=== PATIENT | male | born 1940 | race Caucasian/White ===

== ENCOUNTER 2019-04-30 21:32 | Emergency (ER) | payer MEDICAID ==
[~2019-04-30] VITALS: Ht 170.2 cm; Wt 68.0 kg
[~2019-04-30 21:32] MED LIST: DIPH25CA83 PO
[2019-05-01 00:35] VITALS: BP 121/51
== END 2019-05-01 00:45 | disposition home or self-care (01) ==
LOC: ER 21:32
DX: R55 Syncope and collapse (principal); F43.20 Adjustment disorder, unspecified; F43.22 Adjustment disorder with anxiety; I11.0 Hypertensive heart disease with heart failure; E11.9 Type 2 diabetes mellitus without complications; I50.9 Heart failure, unspecified; Z95.1 Presence of aortocoronary bypass graft; Z98.890 Other specified postprocedural states
CPT/HCPCS: 82962; 93005; 99283

== ENCOUNTER 2019-12-20 21:25 | Emergency (ER) | payer MEDICAID ==
[~2019-12-20] VITALS: Ht 167.6 cm; Wt 70.0 kg
[2019-12-21 00:13] LABS: HEMATOCRIT. 42.8 % (42.0-52.0); HEMOGLOBIN. 14.6 g/dL (14.0-18.0); MEAN CORPUSCULAR HEMOGLOBIN 32.9 pg (28.0-32.0); MEAN CORPUSCULAR VOLUME 96.9 fL (80.0-94.0); MEAN PLATELET VOLUME 7.5 fl (7.4-10.4); PLATELET 299 x1000/uL (130-400); RED BLOOD CELL COUNT 4.42 mill/uL (4.7-6.1); RED CELL DISTRIBUTION WIDTH 14.3 % (11.6-14.6)
[2019-12-21 00:15] LABS: CHLORIDE 107 mEq/L (98-107)
[2019-12-21 00:56] LABS: PLATELET ESTIMATE NORMAL
[2019-12-21] MEDS ORDERED: SODIUM CHLORIDE 0.9% 1,000 ML IV ONE (01:08)
[2019-12-21] MEDS ORDERED: ASPIRIN 325MG EC TABLET PO SCH (01:15)
[2019-12-21 04:59] VITALS: BP 114/42
[2019-12-21] MEDS ORDERED: IOHEXOL-350 100 ML BOTTLE ONE (06:27)
== END 2019-12-21 05:40 | disposition left against medical advice (07) ==
LOC: ER 21:37 → CANBEDREQ 12-21 06:36
DX: R55 Syncope and collapse (principal); R53.1 Weakness; R41.82 Altered mental status, unspecified; R79.89 Other specified abnormal findings of blood chemistry; I11.0 Hypertensive heart disease with heart failure; I50.9 Heart failure, unspecified; E11.9 Type 2 diabetes mellitus without complications; Z95.1 Presence of aortocoronary bypass graft; Z98.62 Peripheral vascular angioplasty status; Z98.890 Other specified postprocedural states
CPT/HCPCS: 36415; 70450; 71045; 71275; 80053; 82962; 83880; 84484; 85025; 85379; 93005; 96360; 99285; Q9967

== ENCOUNTER 2020-05-29 02:25 | Inpatient (IN) | payer MEDICAID, OTHER ==
[~2020-05-29] VITALS: Ht 154.9 cm; Wt 84.4 kg
[2020-05-29] MEDS ORDERED: SODIUM CHLORIDE 0.9% 1,000 ML IV ONE (02:45)
[2020-05-29 02:55] LABS: HEMATOCRIT. 39.5 % (42.0-52.0); HEMOGLOBIN. 13.4 g/dL (14.0-18.0); MEAN CORPUSCULAR HEMOGLOBIN 32.1 pg (28.0-32.0); MEAN CORPUSCULAR VOLUME 94.8 fL (80.0-94.0); PLATELET 383 x1000/uL (130-400); RED BLOOD CELL COUNT 4.17 mill/uL (4.7-6.1); RED CELL DISTRIBUTION WIDTH 13.6 % (11.6-14.6)
[2020-05-29 02:59] LABS: CHLORIDE 87 mEq/L (98-107)
[2020-05-29 04:29] LABS: PLATELET ESTIMATE NORMAL
[2020-05-29] MEDS ORDERED: AZITHROMYCIN 500 MG in DEXT 5% WATER 250 ML IV ONE (04:45)
[2020-05-29] MEDS ORDERED: CEFTRIAXONE 1 G PREMIX 50 ML IV ONE (04:45)
[2020-05-29] MEDS ORDERED: TRAMADOL 50MG TABLET PO PRN (07:15)
[2020-05-29] MEDS ORDERED: ONDANSETRON HCL 4MG/2ML INJ IV PRN (07:15)
[2020-05-29] MEDS ORDERED: ALBUTEROL 6.7GM HFA INHALER ORI PRN (07:15)
[2020-05-29] MEDS: GUAIFENESIN/DM 600MG/30MG ER TAB 12HR PO SCH ×2 (07:15→18:47)
[2020-05-29] MEDS ORDERED: CLONIDINE 0.1MG TABLET PO PRN (07:15)
[2020-05-29] MEDS ORDERED: NA PHOS,M-B/NA PHOS,DI-BA ENEMA 118ML PR PRN (07:15)
[2020-05-29] MEDS ORDERED: NITROGLYCERIN 0.4MG TABLET SL SL PRN (07:15)
[2020-05-29] MEDS ORDERED: DEXTROSE 50% WATER 50ML SYRINGE IV PRN (07:15)
[2020-05-29] MEDS ORDERED: GUAIFENESIN 200MG/10ML SUGAR FREE UDC PO PRN (07:15)
[2020-05-29] MEDS ORDERED: DOCUSATE SODIUM 100MG CAPSULE PO PRN (07:15)
[2020-05-29] MEDS ORDERED: MAGNESIUM/ALUMINUM HYDROXIDE/SIMETHICONE 30ML UDC PO PRN (07:15)
[2020-05-29] MEDS: SODIUM CHLORIDE 0.9% 1,000 ML IV SCH ×2 (07:47→22:55)
[2020-05-29 08:12] LABS: BG BASE EXCESS -3.3 mmol/L (-2.0-2.0); BG CARBOXYHEMOGLOBIN 0.5 % (0.5-1.5); BG HCO3 ACT 18.7 mmol/L (22.0-26.0); BG METHEMOGLOBIN 0.3 % (0.0-1.5); BG OXYGEN SATURATION 90.9 % (92.0-98.5); BG OXYHEMOGLOBIN 90.2 % (94.0-97.0); BG PCO2 25.8 mmHg (35.0-45.0); BG PH 7.479 (7.350-7.450); BG PO2 57.5 mmHg (75.0-100.0); BG SAMPLE SITE RIGHT RADIAL; BG TOTAL HEMOGLOBIN 12.7 g/dL (12.0-18.0); BG VENT MODE NASAL CANNULA
[2020-05-29] MEDS: INSULIN LISPRO 100 UNITS/ML SUBCUT SCH ×4 (08:18→21:00)
[2020-05-29 08:44] LABS: INR 1.1; PROTHROMBIN TIME 11.9 sec (9.6-11.0)
[2020-05-29 08:50] LABS: VITAMIN B12 SERUM 1134 pg/mL (211-911)
[2020-05-29] MEDS ORDERED: METOPROLOL TARTRATE 25MG TABLET PO SCH (09:00)
[2020-05-29] MEDS ORDERED: ASPIRIN 325MG EC TABLET PO SCH (09:00)
[2020-05-29] MEDS: BLOOD SUGAR DIAGNOSTIC STRIP TEST SCH ×4 (09:02→21:00)
[2020-05-29] MEDS: DEXAMETHASONE 10 MG/ML VIAL IV SCH (09:10)
[2020-05-29] MEDS: FAMOTIDINE 20MG TABLET PO SCH ×2 (09:11→22:20)
[2020-05-29] MEDS: ZINC SULFATE 220 MG ( 50 ) CAPSULE PO SCH (09:11)
[2020-05-29] MEDS: ASCORBIC ACID 500 MG TABLET PO SCH ×2 (09:11→22:20)
[2020-05-29] MEDS: ENOXAPARIN 80MG/0.8ML SYR SUBCUT SCH ×2 (09:11→22:22)
[2020-05-29] MEDS: AMLODIPINE 5MG TABLET PO SCH (09:23)
[2020-05-29 12:00] VITALS: BP 135/60
[2020-05-29] MEDS: CHOLECALCIFEROL (D3) 1000 UNIT TABLET PO SCH (14:30)
[2020-05-29 16:00] VITALS: BP 145/80
[2020-05-29 16:26] LABS: T4 FREE 2.25 ng/dL (0.76-1.46)
[2020-05-29 16:29] LABS: CREATINE KINASE MB FRACTION 19.1 ng/mL (0.5-3.6)
[2020-05-29] MEDS ORDERED: AMLO10TA80 PO (19:40)
[2020-05-29] MEDS ORDERED: CLOP75TA33 PO (19:40)
[2020-05-29] MEDS ORDERED: BENA40TA9 PO (19:40)
[2020-05-29] MEDS ORDERED: OMEP20CA14 PO (19:40)
[2020-05-29] MEDS ORDERED: METO-539 PO (19:40)
[2020-05-29] MEDS ORDERED: ATOR40TA70 PO (19:40)
[2020-05-29] MEDS ORDERED: HYDR25TA PO (19:40)
[2020-05-29 20:40] VITALS: BP 155/79
[2020-05-29] MEDS: ZOLPIDEM TARTRATE 5MG TABLET PO PRN (22:53)
[2020-05-29 23:53] VITALS: BP 139/63
[2020-05-30 02:32] LABS: CREATINE KINASE MB FRACTION 43.7 ng/mL (0.5-3.6)
[2020-05-30 04:00] VITALS: BP 126/57
[2020-05-30] MEDS ORDERED: AZITHROMYCIN 500 MG in DEXT 5% WATER 250 ML IV SCH (06:00)
[2020-05-30] MEDS: BLOOD SUGAR DIAGNOSTIC STRIP TEST SCH ×4 (06:33→21:00)
[2020-05-30 08:00] VITALS: BP 124/57
[2020-05-30] MEDS: GUAIFENESIN/DM 600MG/30MG ER TAB 12HR PO SCH ×2 (08:09→22:34)
[2020-05-30] MEDS: AZITHROMYCIN 500 MG in DEXT 5% WATER 250 ML IV SCH (08:09)
[2020-05-30] MEDS: INSULIN LISPRO 100 UNITS/ML SUBCUT SCH ×4 (08:11→22:45)
[2020-05-30] MEDS ORDERED: CEFTRIAXONE 1 G PREMIX 50 ML IV SCH (08:30)
[2020-05-30 08:52] LABS: HEMATOCRIT. 36.3 % (42.0-52.0); HEMOGLOBIN. 12.4 g/dL (14.0-18.0); MEAN CORPUSCULAR HEMOGLOBIN 32.1 pg (28.0-32.0); MEAN PLATELET VOLUME 6.8 fl (7.4-10.4); PLATELET 427 x1000/uL (130-400); RED BLOOD CELL COUNT 3.86 mill/uL (4.7-6.1); RED CELL DISTRIBUTION WIDTH 13.5 % (11.6-14.6)
[2020-05-30] MEDS: ENOXAPARIN 80MG/0.8ML SYR SUBCUT SCH ×2 (09:00→22:34)
[2020-05-30 09:17] LABS: CHLORIDE 93 mEq/L (98-107)
[2020-05-30] MEDS: ASCORBIC ACID 500 MG TABLET PO SCH ×2 (11:16→22:35)
[2020-05-30] MEDS: DEXAMETHASONE 10 MG/ML VIAL IV SCH (11:16)
[2020-05-30] MEDS: AMLODIPINE 5MG TABLET PO SCH (11:17)
[2020-05-30] MEDS: ASPIRIN 81MG EC TABLET PO SCH (11:18)
[2020-05-30] MEDS: CHOLECALCIFEROL (D3) 1000 UNIT TABLET PO SCH (11:18)
[2020-05-30] MEDS: ZINC SULFATE 220 MG ( 50 ) CAPSULE PO SCH (11:18)
[2020-05-30] MEDS: FAMOTIDINE 20MG TABLET PO SCH ×2 (11:18→22:34)
[2020-05-30] MEDS: ALBUTEROL 6.7GM HFA INHALER ORI SCH ×4 (11:35→23:32)
[2020-05-30] MEDS: SODIUM CHLORIDE 0.9% 1,000 ML IV SCH ×2 (11:42→23:31)
[2020-05-30 12:00] VITALS: BP 138/67
[2020-05-30] MEDS: CEFTRIAXONE 1,000 MG in DEXTROSE 5% WATER 50 ML IV SCH (13:54)
[2020-05-30 14:16] LABS: PLATELET ESTIMATE INCREASED
[2020-05-30 16:00] VITALS: BP 128/67
[2020-05-30 20:00] VITALS: BP 98/68
[2020-05-31] VITALS: BP 112/62
[2020-05-31 04:00] VITALS: BP 92/65
[2020-05-31] MEDS: ALBUTEROL 6.7GM HFA INHALER ORI SCH ×4 (04:07→21:59)
[2020-05-31] MEDS: AZITHROMYCIN 500 MG in DEXT 5% WATER 250 ML IV SCH (06:02)
[2020-05-31] MEDS: GUAIFENESIN/DM 600MG/30MG ER TAB 12HR PO SCH ×2 (06:02→21:58)
[2020-05-31] MEDS: BLOOD SUGAR DIAGNOSTIC STRIP TEST SCH ×4 (06:58→21:59)
[2020-05-31] MEDS: INSULIN LISPRO 100 UNITS/ML SUBCUT SCH ×4 (06:59→23:08)
[2020-05-31 08:00] VITALS: BP 125/60
[2020-05-31] MEDS: ASCORBIC ACID 500 MG TABLET PO SCH ×2 (09:00→21:58)
[2020-05-31] MEDS: DEXAMETHASONE 10 MG/ML VIAL IV SCH (09:19)
[2020-05-31] MEDS: ENOXAPARIN 80MG/0.8ML SYR SUBCUT SCH ×2 (09:19→21:59)
[2020-05-31] MEDS: ZINC SULFATE 220 MG ( 50 ) CAPSULE PO SCH (09:19)
[2020-05-31] MEDS: CHOLECALCIFEROL (D3) 1000 UNIT TABLET PO SCH (09:20)
[2020-05-31] MEDS: ASPIRIN 81MG EC TABLET PO SCH (09:20)
[2020-05-31] MEDS: AMLODIPINE 5MG TABLET PO SCH (09:21)
[2020-05-31 12:00] VITALS: BP 124/57
[2020-05-31] MEDS: CEFTRIAXONE 1,000 MG in DEXTROSE 5% WATER 50 ML IV SCH (12:18)
[2020-05-31] MEDS: SODIUM CHLORIDE 0.9% 1,000 ML IV SCH ×2 (12:18→22:00)
[2020-05-31] MEDS: FAMOTIDINE 20MG TABLET PO SCH ×2 (12:18→23:07)
[2020-05-31 16:00] VITALS: BP 131/55
[2020-05-31 20:00] VITALS: BP 159/67
[2020-06-01] VITALS: BP 129/61
[2020-06-01] MEDS: ALBUTEROL 6.7GM HFA INHALER ORI SCH ×4 (03:04→20:51)
[2020-06-01 04:00] VITALS: BP 129/69
[2020-06-01] MEDS: GUAIFENESIN/DM 600MG/30MG ER TAB 12HR PO SCH ×2 (06:06→20:50)
[2020-06-01] MEDS: BLOOD SUGAR DIAGNOSTIC STRIP TEST SCH ×4 (06:06→21:47)
[2020-06-01] MEDS: AZITHROMYCIN 500 MG in DEXT 5% WATER 250 ML IV SCH (06:06)
[2020-06-01] MEDS: INSULIN LISPRO 100 UNITS/ML SUBCUT SCH ×4 (07:10→21:00)
[2020-06-01 08:00] VITALS: BP 127/65
[2020-06-01] MEDS: DEXAMETHASONE 10 MG/ML VIAL IV SCH (09:32)
[2020-06-01] MEDS: ENOXAPARIN 80MG/0.8ML SYR SUBCUT SCH ×2 (09:33→20:58)
[2020-06-01] MEDS: CHOLECALCIFEROL (D3) 1000 UNIT TABLET PO SCH (09:33)
[2020-06-01] MEDS: AMLODIPINE 5MG TABLET PO SCH (09:33)
[2020-06-01] MEDS: FAMOTIDINE 20MG TABLET PO SCH ×2 (09:33→20:51)
[2020-06-01] MEDS: ASCORBIC ACID 500 MG TABLET PO SCH ×2 (09:34→20:51)
[2020-06-01] MEDS: ZINC SULFATE 220 MG ( 50 ) CAPSULE PO SCH (09:34)
[2020-06-01] MEDS: ASPIRIN 81MG EC TABLET PO SCH (09:34)
[2020-06-01 12:00] VITALS: BP 160/77
[2020-06-01] MEDS: CEFTRIAXONE 1,000 MG in DEXTROSE 5% WATER 50 ML IV SCH (13:25)
[2020-06-01 16:00] VITALS: BP 144/87
[2020-06-01] MEDS: SODIUM CHLORIDE 0.9% 1,000 ML IV SCH ×2 (16:27→21:46)
[2020-06-01 20:00] VITALS: BP 132/60
[2020-06-01] MEDS: ZOLPIDEM TARTRATE 5MG TABLET PO PRN (20:51)
[2020-06-02] VITALS: BP 130/65
[2020-06-02] MEDS: ALBUTEROL 6.7GM HFA INHALER ORI SCH ×4 (03:08→23:52)
[2020-06-02 04:00] VITALS: BP 142/68
[2020-06-02] MEDS: BLOOD SUGAR DIAGNOSTIC STRIP TEST SCH ×4 (06:03→21:00)
[2020-06-02] MEDS: AZITHROMYCIN 500 MG in DEXT 5% WATER 250 ML IV SCH (06:03)
[2020-06-02] MEDS: INSULIN LISPRO 100 UNITS/ML SUBCUT SCH ×4 (06:03→21:00)
[2020-06-02] MEDS: GUAIFENESIN/DM 600MG/30MG ER TAB 12HR PO SCH ×2 (06:04→18:15)
[2020-06-02 08:00] VITALS: BP 148/66
[2020-06-02] MEDS: ASCORBIC ACID 500 MG TABLET PO SCH ×2 (08:24→23:50)
[2020-06-02] MEDS: DEXAMETHASONE 10 MG/ML VIAL IV SCH (08:24)
[2020-06-02] MEDS: ZINC SULFATE 220 MG ( 50 ) CAPSULE PO SCH (08:24)
[2020-06-02] MEDS: ASPIRIN 81MG EC TABLET PO SCH (08:24)
[2020-06-02] MEDS: CHOLECALCIFEROL (D3) 1000 UNIT TABLET PO SCH (08:24)
[2020-06-02] MEDS: FAMOTIDINE 20MG TABLET PO SCH ×2 (08:24→23:50)
[2020-06-02] MEDS: AMLODIPINE 5MG TABLET PO SCH (08:26)
[2020-06-02] MEDS: ENOXAPARIN 80MG/0.8ML SYR SUBCUT SCH ×2 (08:26→23:51)
[2020-06-02] MEDS: CEFTRIAXONE 1,000 MG in DEXTROSE 5% WATER 50 ML IV SCH (13:49)
[2020-06-02 16:00] VITALS: BP 158/77
[2020-06-02] MEDS: SODIUM CHLORIDE 0.9% 1,000 ML IV SCH (18:12)
[2020-06-02 20:00] VITALS: BP 147/75
[2020-06-03] VITALS: BP 143/72
[2020-06-03] MEDS: ALBUTEROL 6.7GM HFA INHALER ORI SCH ×4 (03:00→21:37)
[2020-06-03 04:00] VITALS: BP 140/71
[2020-06-03] MEDS: BLOOD SUGAR DIAGNOSTIC STRIP TEST SCH ×4 (06:40→21:00)
[2020-06-03] MEDS: INSULIN LISPRO 100 UNITS/ML SUBCUT SCH ×4 (07:10→21:00)
[2020-06-03] MEDS: SODIUM CHLORIDE 0.9% 1,000 ML IV SCH ×2 (08:08→23:38)
[2020-06-03] MEDS: GUAIFENESIN/DM 600MG/30MG ER TAB 12HR PO SCH ×2 (08:08→21:32)
[2020-06-03] MEDS: DEXAMETHASONE 10 MG/ML VIAL IV SCH (08:30)
[2020-06-03] MEDS: ASCORBIC ACID 500 MG TABLET PO SCH ×2 (08:30→21:32)
[2020-06-03] MEDS: CHOLECALCIFEROL (D3) 1000 UNIT TABLET PO SCH (08:30)
[2020-06-03] MEDS: ENOXAPARIN 80MG/0.8ML SYR SUBCUT SCH ×2 (08:30→21:36)
[2020-06-03] MEDS: ASPIRIN 81MG EC TABLET PO SCH (08:30)
[2020-06-03] MEDS: AMLODIPINE 5MG TABLET PO SCH (08:30)
[2020-06-03] MEDS: FAMOTIDINE 20MG TABLET PO SCH ×2 (08:30→21:32)
[2020-06-03] MEDS: ZINC SULFATE 220 MG ( 50 ) CAPSULE PO SCH (08:30)
[2020-06-03 12:00] VITALS: BP 126/80
[2020-06-03] MEDS: CEFTRIAXONE 1,000 MG in DEXTROSE 5% WATER 50 ML IV SCH (12:14)
[2020-06-03 16:00] VITALS: BP 152/92
[2020-06-03 20:00] VITALS: BP 139/78
[2020-06-03] MEDS: ACETAMINOPHEN 325MG TABLET PO PRN (21:47)
[2020-06-04] VITALS: BP 138/70
[2020-06-04] MEDS: ALBUTEROL 6.7GM HFA INHALER ORI SCH ×3 (03:00→17:19)
[2020-06-04 04:00] VITALS: BP 142/85
[2020-06-04] MEDS: BLOOD SUGAR DIAGNOSTIC STRIP TEST SCH ×3 (06:40→16:40)
[2020-06-04] MEDS: INSULIN LISPRO 100 UNITS/ML SUBCUT SCH ×4 (07:10→21:00)
[2020-06-04 08:00] VITALS: BP 136/74
[2020-06-04] MEDS: DEXAMETHASONE 10 MG/ML VIAL IV SCH (09:00)
[2020-06-04] MEDS: FAMOTIDINE 20MG TABLET PO SCH (10:15)
[2020-06-04] MEDS: ENOXAPARIN 80MG/0.8ML SYR SUBCUT SCH ×2 (10:15→21:00)
[2020-06-04] MEDS: ASCORBIC ACID 500 MG TABLET PO SCH (10:15)
[2020-06-04] MEDS: GUAIFENESIN/DM 600MG/30MG ER TAB 12HR PO SCH (10:15)
[2020-06-04] MEDS: AMLODIPINE 5MG TABLET PO SCH (10:16)
[2020-06-04] MEDS: CHOLECALCIFEROL (D3) 1000 UNIT TABLET PO SCH (10:18)
[2020-06-04] MEDS: ZINC SULFATE 220 MG ( 50 ) CAPSULE PO SCH (10:18)
[2020-06-04] MEDS: ASPIRIN 81MG EC TABLET PO SCH (10:18)
[2020-06-04] MEDS: SODIUM CHLORIDE 0.9% 1,000 ML IV SCH ×2 (11:10→23:47)
[2020-06-04 12:00] VITALS: BP 141/88
[2020-06-04] MEDS: CEFTRIAXONE 1,000 MG in DEXTROSE 5% WATER 50 ML IV SCH (13:15)
[2020-06-04 16:00] VITALS: BP 153/86
[2020-06-04 20:00] VITALS: BP 152/82
[2020-06-05] MEDS: ASCORBIC ACID 500 MG TABLET PO SCH ×3 (01:31→21:06)
[2020-06-05] MEDS: FAMOTIDINE 20MG TABLET PO SCH ×3 (01:32→21:06)
[2020-06-05] MEDS: CHOLECALCIFEROL (D3) 1000 UNIT TABLET PO SCH (01:32)
[2020-06-05] MEDS: GUAIFENESIN/DM 600MG/30MG ER TAB 12HR PO SCH ×3 (01:36→19:15)
[2020-06-05] MEDS: ALBUTEROL 6.7GM HFA INHALER ORI SCH ×5 (01:37→21:07)
[2020-06-05 04:00] VITALS: BP 162/78
[2020-06-05] MEDS: BLOOD SUGAR DIAGNOSTIC STRIP TEST SCH ×4 (06:40→21:07)
[2020-06-05] MEDS: INSULIN LISPRO 100 UNITS/ML SUBCUT SCH ×4 (07:10→21:00)
[2020-06-05 08:00] VITALS: BP 144/75
[2020-06-05] MEDS: ASPIRIN 81MG EC TABLET PO SCH (08:59)
[2020-06-05] MEDS: ZINC SULFATE 220 MG ( 50 ) CAPSULE PO SCH (08:59)
[2020-06-05] MEDS: AMLODIPINE 5MG TABLET PO SCH (09:00)
[2020-06-05] MEDS: ENOXAPARIN 80MG/0.8ML SYR SUBCUT SCH ×2 (09:01→21:05)
[2020-06-05] MEDS: DEXAMETHASONE 10 MG/ML VIAL IV SCH (09:29)
[2020-06-05 11:35] LABS: HEMATOCRIT. 37.8 % (42.0-52.0); HEMOGLOBIN. 12.5 g/dL (14.0-18.0); MEAN CORPUSCULAR HEMOGLOBIN 31.4 pg (28.0-32.0); MEAN PLATELET VOLUME 6.5 fl (7.4-10.4); PLATELET 538 x1000/uL (130-400); RED BLOOD CELL COUNT 3.98 mill/uL (4.7-6.1)
[2020-06-05 11:41] LABS: CHLORIDE 110 mEq/L (98-107)
[2020-06-05 12:00] VITALS: BP 147/95
[2020-06-05] MEDS: SODIUM CHLORIDE 0.9% 1,000 ML IV SCH (13:21)
[2020-06-05 14:16] LABS: PLATELET ESTIMATE INCREASED
[2020-06-05 16:00] VITALS: BP 149/84
[2020-06-05 20:00] VITALS: BP 141/88
[2020-06-06] VITALS (47 sets, daily range): BP systolic 59–169; BP diastolic 39–87
[2020-06-06] MEDS: SODIUM CHLORIDE 0.9% 1,000 ML IV SCH ×2 (02:42→16:23)
[2020-06-06] MEDS: ALBUTEROL 6.7GM HFA INHALER ORI SCH ×4 (02:42→22:24)
[2020-06-06] MEDS: BLOOD SUGAR DIAGNOSTIC STRIP TEST SCH ×4 (05:24→20:13)
[2020-06-06] MEDS: INSULIN LISPRO 100 UNITS/ML SUBCUT SCH ×4 (05:32→20:16)
[2020-06-06] MEDS: GUAIFENESIN/DM 600MG/30MG ER TAB 12HR PO SCH ×2 (06:20→19:15)
[2020-06-06] MEDS: AMLODIPINE 5MG TABLET PO SCH (08:50)
[2020-06-06] MEDS: ASCORBIC ACID 500 MG TABLET PO SCH ×2 (08:51→20:14)
[2020-06-06] MEDS: ZINC SULFATE 220 MG ( 50 ) CAPSULE PO SCH (08:51)
[2020-06-06] MEDS: FAMOTIDINE 20MG TABLET PO SCH ×2 (08:51→20:14)
[2020-06-06] MEDS: CHOLECALCIFEROL (D3) 1000 UNIT TABLET PO SCH (08:51)
[2020-06-06] MEDS: ASPIRIN 81MG EC TABLET PO SCH (08:51)
[2020-06-06] MEDS: DEXAMETHASONE 10 MG/ML VIAL IV SCH (08:51)
[2020-06-06] MEDS: ENOXAPARIN 80MG/0.8ML SYR SUBCUT SCH (08:52)
[2020-06-06] MEDS ORDERED: NOREPINEPHRINE 8 MG in DEXT 5% WATER 242 ML IV STA (17:40)
[2020-06-06] MEDS ORDERED: PHENYLEPHRINE 50 MG in DEXT 5% WATER 245 ML IV STA (17:44)
[2020-06-06] MEDS: MIDAZOLAM 100MG/100ML PMX 100 ML IV PRN ×2 (18:27→23:52)
[2020-06-06 18:34] LABS: BG BASE EXCESS -10.3 mmol/L (-2.0-2.0); BG CARBOXYHEMOGLOBIN 1.3 % (0.5-1.5); BG DEOXYHEMOGLOBIN 18.3 % (0.0-5.0); BG HCO3 ACT 19.6 mmol/L (22.0-26.0); BG METHEMOGLOBIN 0.3 % (0.0-1.5); BG OXYGEN SATURATION 81.4 % (92.0-98.5); BG OXYHEMOGLOBIN 80.1 % (94.0-97.0); BG PH 7.111 (7.350-7.450); BG PO2 62.8 mmHg (75.0-100.0); BG SAMPLE SITE LEFT FEMORAL; BG TOTAL HEMOGLOBIN 12.1 g/dL (12.0-18.0); BG VENT MODE VENT - AC
[2020-06-06] MEDS ORDERED: SODIUM BICARBONATE 8.4% 1 MEQ/ML 50ML SYR IV NR (18:45)
[2020-06-06] MEDS ORDERED: NOREPINEPHRINE 8MG/250ML PMX 250 ML IV PRN (21:45)
[2020-06-06] MEDS: PHENYLEPHRINE 50 MG in DEXT 5% WATER 245 ML IV PRN (22:20)
[2020-06-06] MEDS: FENTANYL CITRATE/PF 2,500 MCG in SODIUM CHLORIDE 0.9% 200 ML IV PRN (23:32)
[2020-06-07] VITALS (83 sets, daily range): BP systolic 76–167; BP diastolic 48–88
[2020-06-07] MEDS: PHENYLEPHRINE 50 MG in DEXT 5% WATER 245 ML IV PRN ×3 (02:48→19:12)
[2020-06-07] MEDS: INSULIN LISPRO 100 UNITS/ML SUBCUT SCH ×4 (07:00→21:00)
[2020-06-07] MEDS: BLOOD SUGAR DIAGNOSTIC STRIP TEST SCH ×4 (07:21→21:19)
[2020-06-07] MEDS: AMLODIPINE 5MG TABLET PO SCH (07:34)
[2020-06-07] MEDS: FAMOTIDINE 20MG TABLET PO SCH ×2 (08:04→21:19)
[2020-06-07] MEDS: ALBUTEROL 6.7GM HFA INHALER ORI SCH (08:04)
[2020-06-07] MEDS: CHOLECALCIFEROL (D3) 1000 UNIT TABLET PO SCH (08:04)
[2020-06-07] MEDS: ASCORBIC ACID 500 MG TABLET PO SCH ×2 (08:04→21:19)
[2020-06-07] MEDS: ASPIRIN 81MG EC TABLET PO SCH (08:04)
[2020-06-07] MEDS: DEXAMETHASONE 10 MG/ML VIAL IV SCH (08:04)
[2020-06-07] MEDS: ZINC SULFATE 220 MG ( 50 ) CAPSULE PO SCH (08:06)
[2020-06-07] MEDS: SODIUM CHLORIDE 0.9% 1,000 ML IV SCH ×2 (08:54→23:23)
[2020-06-07] MEDS: MIDAZOLAM 100MG/100ML PMX 100 ML IV PRN ×2 (10:17→21:25)
[2020-06-07] MEDS: ENOXAPARIN 40MG/0.4ML SYR SUBCUT SCH (13:29)
[2020-06-07] MEDS ORDERED: IPRATROPIUM/ALBUTEROL 0.5-3(2.5)MG/3ML NEB HHN PRN (15:00)
[2020-06-07 15:34] LABS: BG BASE EXCESS 4.6 mmol/L (-2.0-2.0); BG CARBOXYHEMOGLOBIN 0.9 % (0.5-1.5); BG DEOXYHEMOGLOBIN 2.4 % (0.0-5.0); BG FRACTION INSPIRED OXYGEN 95; BG HCO3 ACT 28.7 mmol/L (22.0-26.0); BG METHEMOGLOBIN 0.3 % (0.0-1.5); BG OXYGEN SATURATION 97.6 % (92.0-98.5); BG OXYHEMOGLOBIN 96.4 % (94.0-97.0); BG PCO2 40.9 mmHg (35.0-45.0); BG PH 7.464 (7.350-7.450); BG PO2 116.2 mmHg (75.0-100.0); BG SAMPLE SITE RIGHT RADIAL; BG TOTAL HEMOGLOBIN 12.2 g/dL (12.0-18.0); BG VENT MODE VENT - AC
[2020-06-07 16:58] LABS: HEMOGLOBIN. 11.8 g/dL (14.0-18.0); MEAN CORPUSCULAR HEMOGLOBIN 31.1 pg (28.0-32.0); MEAN CORPUSCULAR VOLUME 97.4 fL (80.0-94.0); MEAN PLATELET VOLUME 7.5 fl (7.4-10.4); PLATELET 401 x1000/uL (130-400); RED CELL DISTRIBUTION WIDTH 15.2 % (11.6-14.6)
[2020-06-07 17:06] LABS: CHLORIDE 113 mEq/L (98-107)
[2020-06-07 17:11] LABS: PHOSPHORUS 3.5 mg/dL (2.5-4.9)
[2020-06-07] MEDS: CEFEPIME 2,000 MG in DEXT 5% WATER 100 ML IV SCH (18:13)
[2020-06-07] MEDS: IPRATROPIUM/ALBUTEROL 0.5-3(2.5)MG/3ML NEB HHN SCH (20:18)
[2020-06-07] MEDS: METRONIDAZOLE 500MG TABLET PO SCH (21:19)
[2020-06-07 22:49] LABS: PLATELET ESTIMATE SLIGHTLY INCREASED
[2020-06-08] VITALS (95 sets, daily range): BP systolic 86–146; BP diastolic 49–70
[2020-06-08] MEDS: IPRATROPIUM/ALBUTEROL 0.5-3(2.5)MG/3ML NEB HHN SCH ×5 (03:12→21:30)
[2020-06-08] MEDS: CEFEPIME 2,000 MG in DEXT 5% WATER 100 ML IV SCH ×2 (05:00→15:53)
[2020-06-08] MEDS: METRONIDAZOLE 500MG TABLET PO SCH ×3 (05:01→21:11)
[2020-06-08] MEDS: BLOOD SUGAR DIAGNOSTIC STRIP TEST SCH ×4 (05:01→21:00)
[2020-06-08] MEDS: INSULIN LISPRO 100 UNITS/ML SUBCUT SCH ×4 (05:05→21:00)
[2020-06-08 05:13] LABS: HEMATOCRIT. 33.3 % (42.0-52.0); MEAN CORPUSCULAR HEMOGLOBIN 31.5 pg (28.0-32.0); MEAN CORPUSCULAR VOLUME 95.5 fL (80.0-94.0); MEAN PLATELET VOLUME 7.3 fl (7.4-10.4); PLATELET 378 x1000/uL (130-400); RED BLOOD CELL COUNT 3.49 mill/uL (4.7-6.1)
[2020-06-08 05:27] LABS: CHLORIDE 114 mEq/L (98-107)
[2020-06-08] MEDS: FENTANYL CITRATE/PF 2,500 MCG in SODIUM CHLORIDE 0.9% 200 ML IV PRN (05:40)
[2020-06-08] MEDS: MIDAZOLAM 100MG/100ML PMX 100 ML IV PRN ×2 (06:47→18:04)
[2020-06-08] MEDS: AMLODIPINE 5MG TABLET PO SCH (09:00)
[2020-06-08] MEDS: ENOXAPARIN 40MG/0.4ML SYR SUBCUT SCH (09:00)
[2020-06-08] MEDS: ZINC SULFATE 220 MG ( 50 ) CAPSULE PO SCH (09:04)
[2020-06-08] MEDS: DOCUSATE SODIUM SUGAR FREE 100MG/10ML UDC NG SCH ×2 (09:04→17:46)
[2020-06-08] MEDS: CHOLECALCIFEROL (D3) 1000 UNIT TABLET PO SCH (09:04)
[2020-06-08] MEDS: ASPIRIN 81MG EC TABLET PO SCH (09:04)
[2020-06-08] MEDS: ASCORBIC ACID 500 MG TABLET PO SCH ×2 (09:04→21:11)
[2020-06-08] MEDS: FAMOTIDINE 20MG TABLET PO SCH ×2 (09:04→21:11)
[2020-06-08] MEDS: DEXAMETHASONE 10 MG/ML VIAL IV SCH (09:04)
[2020-06-08] MEDS: ACETAMINOPHEN 325MG TABLET PO PRN (09:16)
[2020-06-08] MEDS: PHENYLEPHRINE 50 MG in DEXT 5% WATER 245 ML IV PRN (10:55)
[2020-06-08 11:13] LABS: BG BASE EXCESS 0.6 mmol/L (-2.0-2.0); BG CARBOXYHEMOGLOBIN 1.1 % (0.5-1.5); BG DEOXYHEMOGLOBIN 3.8 % (0.0-5.0); BG FRACTION INSPIRED OXYGEN 100; BG METHEMOGLOBIN 0.3 % (0.0-1.5); BG OXYGEN SATURATION 96.1 % (92.0-98.5); BG OXYHEMOGLOBIN 94.8 % (94.0-97.0); BG PCO2 51.1 mmHg (35.0-45.0); BG PO2 92.2 mmHg (75.0-100.0); BG SAMPLE SITE LEFT RADIAL; BG TOTAL HEMOGLOBIN 11.3 g/dL (12.0-18.0); BG VENT MODE VENT - AC
[2020-06-08] MEDS ORDERED: IOHEXOL-350 100 ML BOTTLE ONE (12:37)
[2020-06-08 13:53] LABS: PLATELET ESTIMATE NORMAL
[2020-06-08] MEDS: SODIUM CHLORIDE 0.9% 1,000 ML IV SCH (14:03)
[2020-06-09] VITALS (69 sets, daily range): BP systolic 82–129; BP diastolic 44–82
[2020-06-09] MEDS: PHENYLEPHRINE 50 MG in DEXT 5% WATER 245 ML IV PRN (02:10)
[2020-06-09] MEDS: IPRATROPIUM/ALBUTEROL 0.5-3(2.5)MG/3ML NEB HHN SCH ×5 (03:10→20:56)
[2020-06-09] MEDS: CEFEPIME 2,000 MG in DEXT 5% WATER 100 ML IV SCH ×2 (04:38→15:56)
[2020-06-09] MEDS: SODIUM CHLORIDE 0.9% 1,000 ML IV SCH ×2 (04:38→20:48)
[2020-06-09 05:59] LABS: HEMATOCRIT. 33.3 % (42.0-52.0); HEMOGLOBIN. 10.6 g/dL (14.0-18.0); MEAN CORPUSCULAR VOLUME 97.2 fL (80.0-94.0); PLATELET 339 x1000/uL (130-400); RED BLOOD CELL COUNT 3.43 mill/uL (4.7-6.1); RED CELL DISTRIBUTION WIDTH 15.2 % (11.6-14.6)
[2020-06-09 06:03] LABS: CHLORIDE 113 mEq/L (98-107)
[2020-06-09] MEDS: BLOOD SUGAR DIAGNOSTIC STRIP TEST SCH ×4 (06:16→21:00)
[2020-06-09] MEDS: INSULIN LISPRO 100 UNITS/ML SUBCUT SCH ×4 (06:16→21:00)
[2020-06-09] MEDS: METRONIDAZOLE 500MG TABLET PO SCH ×3 (06:26→21:55)
[2020-06-09] MEDS: FAMOTIDINE 20MG TABLET PO SCH ×2 (09:00→21:55)
[2020-06-09] MEDS: DOCUSATE SODIUM SUGAR FREE 100MG/10ML UDC NG SCH ×2 (09:00→15:54)
[2020-06-09] MEDS: AMLODIPINE 5MG TABLET PO SCH (09:00)
[2020-06-09] MEDS: CHOLECALCIFEROL (D3) 1000 UNIT TABLET PO SCH (09:00)
[2020-06-09] MEDS: ENOXAPARIN 40MG/0.4ML SYR SUBCUT SCH (09:00)
[2020-06-09] MEDS: ZINC SULFATE 220 MG ( 50 ) CAPSULE PO SCH (09:00)
[2020-06-09] MEDS: ASCORBIC ACID 500 MG TABLET PO SCH ×2 (09:00→21:55)
[2020-06-09] MEDS: ASPIRIN 81MG EC TABLET PO SCH (09:00)
[2020-06-09 09:36] LABS: BG BASE EXCESS 0.2 mmol/L (-2.0-2.0); BG CARBOXYHEMOGLOBIN 0.4 % (0.5-1.5); BG DEOXYHEMOGLOBIN 2.5 % (0.0-5.0); BG FRACTION INSPIRED OXYGEN 90; BG HCO3 ACT 26.9 mmol/L (22.0-26.0); BG METHEMOGLOBIN 0.3 % (0.0-1.5); BG OXYGEN SATURATION 97.5 % (92.0-98.5); BG OXYHEMOGLOBIN 96.8 % (94.0-97.0); BG PCO2 53.1 mmHg (35.0-45.0); BG PH 7.322 (7.350-7.450); BG PO2 117.5 mmHg (75.0-100.0); BG SAMPLE SITE LEFT RADIAL; BG TOTAL HEMOGLOBIN 10.9 g/dL (12.0-18.0); BG TOTAL RESPIRATORY RATE 19 b/min; BG VENT MODE VENT - AC
[2020-06-09 11:14] LABS: PLATELET ESTIMATE NORMAL
[2020-06-09] MEDS: FENTANYL CITRATE/PF 2,500 MCG in SODIUM CHLORIDE 0.9% 200 ML IV PRN (11:39)
[2020-06-09] MEDS ORDERED: ACETAMINOPHEN 650MG SUPP PR PRN (21:52)
[2020-06-10] VITALS (69 sets, daily range): BP systolic 91–134; BP diastolic 44–71
[2020-06-10] MEDS: PHENYLEPHRINE 50 MG in DEXT 5% WATER 245 ML IV PRN (02:49)
[2020-06-10] MEDS: IPRATROPIUM/ALBUTEROL 0.5-3(2.5)MG/3ML NEB HHN SCH ×5 (03:01→20:34)
[2020-06-10] MEDS: CEFEPIME 2,000 MG in DEXT 5% WATER 100 ML IV SCH ×2 (04:16→16:54)
[2020-06-10] MEDS: FENTANYL CITRATE/PF 2,500 MCG in SODIUM CHLORIDE 0.9% 200 ML IV PRN ×2 (04:41→21:09)
[2020-06-10 05:55] LABS: HEMATOCRIT. 30.9 % (42.0-52.0); HEMOGLOBIN. 9.9 g/dL (14.0-18.0); MEAN CORPUSCULAR HEMOGLOBIN 31.2 pg (28.0-32.0); MEAN CORPUSCULAR VOLUME 97.6 fL (80.0-94.0); MEAN PLATELET VOLUME 8.6 fl (7.4-10.4); PLATELET 240 x1000/uL (130-400); RED BLOOD CELL COUNT 3.16 mill/uL (4.7-6.1); RED CELL DISTRIBUTION WIDTH 15.5 % (11.6-14.6)
[2020-06-10 06:12] LABS: CHLORIDE 115 mEq/L (98-107)
[2020-06-10] MEDS: BLOOD SUGAR DIAGNOSTIC STRIP TEST SCH ×4 (06:30→20:52)
[2020-06-10] MEDS: METRONIDAZOLE 500MG TABLET PO SCH ×3 (06:39→21:07)
[2020-06-10] MEDS: INSULIN LISPRO 100 UNITS/ML SUBCUT SCH ×4 (06:40→20:52)
[2020-06-10 08:48] LABS: BG BASE EXCESS 2.1 mmol/L (-2.0-2.0); BG CARBOXYHEMOGLOBIN 0.6 % (0.5-1.5); BG DEOXYHEMOGLOBIN 2.5 % (0.0-5.0); BG HCO3 ACT 29.2 mmol/L (22.0-26.0); BG METHEMOGLOBIN 0.3 % (0.0-1.5); BG OXYGEN SATURATION 97.5 % (92.0-98.5); BG OXYHEMOGLOBIN 96.6 % (94.0-97.0); BG PCO2 58.6 mmHg (35.0-45.0); BG PH 7.316 (7.350-7.450); BG SAMPLE SITE LEFT RADIAL; BG TOTAL HEMOGLOBIN 11.3 g/dL (12.0-18.0); BG VENT MODE VENT - AC
[2020-06-10] MEDS: AMLODIPINE 5MG TABLET PO SCH (09:00)
[2020-06-10] MEDS: ZINC SULFATE 220 MG ( 50 ) CAPSULE PO SCH (09:18)
[2020-06-10] MEDS: FAMOTIDINE 20MG TABLET PO SCH ×2 (09:18→21:07)
[2020-06-10] MEDS: ENOXAPARIN 40MG/0.4ML SYR SUBCUT SCH (09:18)
[2020-06-10] MEDS: ASPIRIN 81MG EC TABLET PO SCH (09:18)
[2020-06-10] MEDS: CHOLECALCIFEROL (D3) 1000 UNIT TABLET PO SCH (09:18)
[2020-06-10] MEDS: ASCORBIC ACID 500 MG TABLET PO SCH ×2 (09:18→21:07)
[2020-06-10] MEDS: DOCUSATE SODIUM SUGAR FREE 100MG/10ML UDC NG SCH ×2 (09:18→17:00)
[2020-06-10 11:33] LABS: PLATELET ESTIMATE NORMAL
[2020-06-10] MEDS: SODIUM CHLORIDE 0.45% 1,000 ML IV SCH (14:00)
[2020-06-10] MEDS: ACETAMINOPHEN 325MG TABLET PO PRN (21:08)
[2020-06-11] VITALS (60 sets, daily range): BP systolic 87–156; BP diastolic 45–94
[2020-06-11] MEDS: IPRATROPIUM/ALBUTEROL 0.5-3(2.5)MG/3ML NEB HHN SCH ×6 (00:13→20:38)
[2020-06-11] MEDS: ACETAMINOPHEN 325MG TABLET PO PRN (01:58)
[2020-06-11] MEDS: CEFEPIME 2,000 MG in DEXT 5% WATER 100 ML IV SCH ×2 (04:19→17:06)
[2020-06-11 05:35] LABS: CHLORIDE 114 mEq/L (98-107)
[2020-06-11 05:42] LABS: HEMATOCRIT. 31.2 % (42.0-52.0); MEAN CORPUSCULAR HEMOGLOBIN 31.4 pg (28.0-32.0); MEAN CORPUSCULAR VOLUME 97.6 fL (80.0-94.0); MEAN PLATELET VOLUME 8.4 fl (7.4-10.4); PLATELET 205 x1000/uL (130-400); RED BLOOD CELL COUNT 3.19 mill/uL (4.7-6.1); RED CELL DISTRIBUTION WIDTH 15.3 % (11.6-14.6)
[2020-06-11] MEDS: BLOOD SUGAR DIAGNOSTIC STRIP TEST SCH ×4 (05:59→21:00)
[2020-06-11] MEDS: INSULIN LISPRO 100 UNITS/ML SUBCUT SCH ×4 (05:59→21:00)
[2020-06-11] MEDS: METRONIDAZOLE 500MG TABLET PO SCH ×3 (06:06→21:54)
[2020-06-11] MEDS: AMLODIPINE 5MG TABLET PO SCH (09:00)
[2020-06-11 09:30] LABS: BG BASE EXCESS 0.8 mmol/L (-2.0-2.0); BG CARBOXYHEMOGLOBIN 1.3 % (0.5-1.5); BG DEOXYHEMOGLOBIN 11.4 % (0.0-5.0); BG FRACTION INSPIRED OXYGEN 90; BG HCO3 ACT 27.2 mmol/L (22.0-26.0); BG METHEMOGLOBIN 0.3 % (0.0-1.5); BG OXYGEN SATURATION 88.4 % (92.0-98.5); BG PCO2 52.1 mmHg (35.0-45.0); BG PH 7.336 (7.350-7.450); BG PO2 56.9 mmHg (75.0-100.0); BG SAMPLE SITE RIGHT RADIAL; BG TOTAL HEMOGLOBIN 10.3 g/dL (12.0-18.0); BG VENT MODE VENT - AC
[2020-06-11] MEDS: ENOXAPARIN 40MG/0.4ML SYR SUBCUT SCH (09:42)
[2020-06-11] MEDS: ASCORBIC ACID 500 MG TABLET PO SCH ×2 (09:43→21:53)
[2020-06-11] MEDS: FAMOTIDINE 20MG TABLET PO SCH ×2 (09:43→21:53)
[2020-06-11] MEDS: ZINC SULFATE 220 MG ( 50 ) CAPSULE PO SCH (09:43)
[2020-06-11] MEDS: DOCUSATE SODIUM SUGAR FREE 100MG/10ML UDC NG SCH ×2 (09:43→17:07)
[2020-06-11] MEDS: ASPIRIN 81MG EC TABLET PO SCH (09:43)
[2020-06-11] MEDS: CHOLECALCIFEROL (D3) 1000 UNIT TABLET PO SCH (09:43)
[2020-06-11] MEDS: LORAZEPAM 2MG/ML CPJ IV PRN ×2 (11:15→17:08)
[2020-06-11] MEDS: SODIUM CHLORIDE 0.45% 1,000 ML IV SCH ×2 (12:49→21:31)
[2020-06-11 17:06] LABS: PLATELET ESTIMATE NORMAL
[2020-06-12] VITALS (44 sets, daily range): BP systolic 88–163; BP diastolic 47–79
[2020-06-12] MEDS ORDERED: ACETAMINOPHEN 650MG/20.3ML UDC PO PRN ×2 (00:30→00:45)
[2020-06-12] MEDS ORDERED: ACETAMINOPHEN 325MG TABLET NG PRN (01:00)
[2020-06-12] MEDS: IPRATROPIUM/ALBUTEROL 0.5-3(2.5)MG/3ML NEB HHN SCH ×5 (02:13→21:00)
[2020-06-12] MEDS: CEFEPIME 2,000 MG in DEXT 5% WATER 100 ML IV SCH ×2 (04:00→16:29)
[2020-06-12] MEDS: METRONIDAZOLE 500MG TABLET PO SCH ×3 (05:40→22:14)
[2020-06-12 05:45] LABS: HEMATOCRIT. 27.4 % (42.0-52.0); HEMOGLOBIN. 8.9 g/dL (14.0-18.0); MEAN CORPUSCULAR HEMOGLOBIN 31.6 pg (28.0-32.0); MEAN CORPUSCULAR VOLUME 97.4 fL (80.0-94.0); MEAN PLATELET VOLUME 8.8 fl (7.4-10.4); PLATELET 191 x1000/uL (130-400); RED BLOOD CELL COUNT 2.82 mill/uL (4.7-6.1); RED CELL DISTRIBUTION WIDTH 15.1 % (11.6-14.6)
[2020-06-12 05:53] LABS: CHLORIDE 112 mEq/L (98-107)
[2020-06-12] MEDS: BLOOD SUGAR DIAGNOSTIC STRIP TEST SCH ×4 (06:55→21:00)
[2020-06-12] MEDS: INSULIN LISPRO 100 UNITS/ML SUBCUT SCH ×4 (06:56→21:00)
[2020-06-12 08:14] LABS: BG BASE EXCESS 4.2 mmol/L (-2.0-2.0); BG CARBOXYHEMOGLOBIN 0.7 % (0.5-1.5); BG HCO3 ACT 29.9 mmol/L (22.0-26.0); BG METHEMOGLOBIN 0.3 % (0.0-1.5); BG PCO2 51.3 mmHg (35.0-45.0); BG PH 7.384 (7.350-7.450); BG PO2 129.9 mmHg (75.0-100.0); BG SAMPLE SITE RIGHT RADIAL; BG TOTAL HEMOGLOBIN 9.5 g/dL (12.0-18.0); BG VENT MODE VENT - AC
[2020-06-12] MEDS: AMLODIPINE 5MG TABLET PO SCH (09:00)
[2020-06-12] MEDS: DOCUSATE SODIUM SUGAR FREE 100MG/10ML UDC NG SCH ×2 (09:02→16:31)
[2020-06-12] MEDS: ENOXAPARIN 40MG/0.4ML SYR SUBCUT SCH (09:02)
[2020-06-12] MEDS: ASPIRIN 81MG EC TABLET PO SCH (09:03)
[2020-06-12] MEDS: ZINC SULFATE 220 MG ( 50 ) CAPSULE PO SCH (09:03)
[2020-06-12] MEDS: ASCORBIC ACID 500 MG TABLET PO SCH ×2 (09:03→22:14)
[2020-06-12] MEDS: FAMOTIDINE 20MG TABLET PO SCH ×2 (09:03→22:13)
[2020-06-12] MEDS: CHOLECALCIFEROL (D3) 1000 UNIT TABLET PO SCH (09:03)
[2020-06-12 16:27] LABS: PLATELET ESTIMATE NORMAL
[2020-06-12] MEDS: FENTANYL CITRATE/PF 2,500 MCG in SODIUM CHLORIDE 0.9% 200 ML IV PRN (16:30)
[2020-06-13] VITALS (80 sets, daily range): BP systolic 77–150; BP diastolic 39–82
[2020-06-13] MEDS: IPRATROPIUM/ALBUTEROL 0.5-3(2.5)MG/3ML NEB HHN SCH ×2 (00:58→04:38)
[2020-06-13] MEDS: SODIUM CHLORIDE 0.45% 1,000 ML IV SCH (02:58)
[2020-06-13 05:18] LABS: HEMATOCRIT. 30.5 % (42.0-52.0); HEMOGLOBIN. 9.6 g/dL (14.0-18.0); MEAN CORPUSCULAR HEMOGLOBIN 30.5 pg (28.0-32.0); MEAN PLATELET VOLUME 9.3 fl (7.4-10.4); PLATELET 225 x1000/uL (130-400); RED BLOOD CELL COUNT 3.14 mill/uL (4.7-6.1); RED CELL DISTRIBUTION WIDTH 15.6 % (11.6-14.6)
[2020-06-13] MEDS: BLOOD SUGAR DIAGNOSTIC STRIP TEST SCH ×3 (06:30→21:00)
[2020-06-13] MEDS: INSULIN LISPRO 100 UNITS/ML SUBCUT SCH ×3 (07:00→21:00)
[2020-06-13] MEDS: AMLODIPINE 5MG TABLET PO SCH (09:00)
[2020-06-13 10:45] LABS: BG BASE EXCESS 1.9 mmol/L (-2.0-2.0); BG CARBOXYHEMOGLOBIN 0.6 % (0.5-1.5); BG DEOXYHEMOGLOBIN 2.2 % (0.0-5.0); BG FRACTION INSPIRED OXYGEN 75; BG HCO3 ACT 28.1 mmol/L (22.0-26.0); BG METHEMOGLOBIN 0.3 % (0.0-1.5); BG OXYGEN SATURATION 97.8 % (92.0-98.5); BG OXYHEMOGLOBIN 96.9 % (94.0-97.0); BG PCO2 52.4 mmHg (35.0-45.0); BG PH 7.348 (7.350-7.450); BG PO2 117.5 mmHg (75.0-100.0); BG SAMPLE SITE RIGHT RADIAL; BG TOTAL HEMOGLOBIN 10.2 g/dL (12.0-18.0); BG TOTAL RESPIRATORY RATE 30 b/min; BG VENT MODE VENT - AC
[2020-06-13] MEDS: IPRATROPIUM BROMIDE (0.02%) 0.5MG/2.5ML NEB HHN SCH ×3 (11:30→22:03)
[2020-06-13] MEDS: ASPIRIN 81MG EC TABLET PO SCH (12:24)
[2020-06-13] MEDS: ENOXAPARIN 40MG/0.4ML SYR SUBCUT SCH (12:24)
[2020-06-13] MEDS: FAMOTIDINE 20MG TABLET PO SCH ×2 (12:25→22:12)
[2020-06-13] MEDS: DOCUSATE SODIUM SUGAR FREE 100MG/10ML UDC NG SCH ×2 (12:25→17:22)
[2020-06-13] MEDS: ASCORBIC ACID 500 MG TABLET PO SCH ×2 (12:25→22:12)
[2020-06-13] MEDS: MIDAZOLAM 100MG/100ML PMX 100 ML IV PRN ×2 (12:26→20:28)
[2020-06-13] MEDS: CHOLECALCIFEROL (D3) 1000 UNIT TABLET PO SCH (12:27)
[2020-06-13] MEDS: FENTANYL CITRATE/PF 2,500 MCG in SODIUM CHLORIDE 0.9% 200 ML IV PRN (12:28)
[2020-06-13] MEDS: ZINC SULFATE 220 MG ( 50 ) CAPSULE PO SCH (12:32)
[2020-06-13] MEDS: METHYLPREDNISOLONE SOD SUCC 40 MG/ML VIAL IV SCH ×3 (12:32→22:12)
[2020-06-13 15:46] LABS: PLATELET ESTIMATE NORMAL
[2020-06-13 17:33] LABS: CLARITY URINE CLOUDY (CLEAR); COLOR URINE YELLOW (YELLOW); KETONES URINE NEGATIVE (NEGATIVE); LEUKOCYTE ESTERASE URINE 2+ (NEGATIVE); NITRITE URINE NEGATIVE (NEGATIVE); OCCULT BLOOD URINE 3+ (NEGATIVE); PROTEIN URINE 1+ (NEGATIVE); SPECIFIC GRAVITY URINE 1.016 (1.005-1.030); UROBILINOGEN URINE 0.2 E.U./dL (0.2-1.0)
[2020-06-14] VITALS (90 sets, daily range): BP systolic 71–146; BP diastolic 41–71
[2020-06-14] MEDS: IPRATROPIUM BROMIDE (0.02%) 0.5MG/2.5ML NEB HHN SCH ×4 (00:57→20:17)
[2020-06-14] MEDS: SODIUM CHLORIDE 0.45% 1,000 ML IV SCH ×2 (05:20→13:20)
[2020-06-14] MEDS: FENTANYL CITRATE/PF 2,500 MCG in SODIUM CHLORIDE 0.9% 200 ML IV PRN ×2 (05:22→17:12)
[2020-06-14] MEDS: METHYLPREDNISOLONE SOD SUCC 40 MG/ML VIAL IV SCH ×3 (06:15→21:43)
[2020-06-14] MEDS: BLOOD SUGAR DIAGNOSTIC STRIP TEST SCH ×4 (06:20→21:43)
[2020-06-14] MEDS: INSULIN LISPRO 100 UNITS/ML SUBCUT SCH ×4 (06:20→21:00)
[2020-06-14] MEDS: CHOLECALCIFEROL (D3) 1000 UNIT TABLET PO SCH (08:32)
[2020-06-14] MEDS: DOCUSATE SODIUM SUGAR FREE 100MG/10ML UDC NG SCH ×2 (08:32→17:12)
[2020-06-14] MEDS: ASCORBIC ACID 500 MG TABLET PO SCH ×2 (08:32→21:44)
[2020-06-14] MEDS: ZINC SULFATE 220 MG ( 50 ) CAPSULE PO SCH (08:33)
[2020-06-14] MEDS: FAMOTIDINE 20MG TABLET PO SCH ×2 (08:33→21:45)
[2020-06-14] MEDS: ASPIRIN 81MG EC TABLET PO SCH (08:33)
[2020-06-14] MEDS: AMLODIPINE 5MG TABLET PO SCH (08:34)
[2020-06-14] MEDS: MIDAZOLAM 100MG/100ML PMX 100 ML IV PRN ×2 (08:49→18:25)
[2020-06-14] MEDS ORDERED: SODIUM BICARBONATE 8.4% 1 MEQ/ML 50ML SYR IV SCH (09:00)
[2020-06-14] MEDS: ENOXAPARIN 40MG/0.4ML SYR SUBCUT SCH (09:09)
[2020-06-14 09:39] LABS: BG BASE EXCESS 2.4 mmol/L (-2.0-2.0); BG CARBOXYHEMOGLOBIN 0.8 % (0.5-1.5); BG DEOXYHEMOGLOBIN 4.3 % (0.0-5.0); BG FRACTION INSPIRED OXYGEN 80; BG HCO3 ACT 30.1 mmol/L (22.0-26.0); BG METHEMOGLOBIN 0.3 % (0.0-1.5); BG OXYGEN SATURATION 95.7 % (92.0-98.5); BG OXYHEMOGLOBIN 94.6 % (94.0-97.0); BG PCO2 64.4 mmHg (35.0-45.0); BG PH 7.287 (7.350-7.450); BG PO2 91.1 mmHg (75.0-100.0); BG SAMPLE SITE LEFT RADIAL; BG TOTAL HEMOGLOBIN 10.2 g/dL (12.0-18.0); BG TOTAL RESPIRATORY RATE 22 b/min; BG VENT MODE VENT - AC
[2020-06-14] MEDS ORDERED: SODIUM POLYSTYRENE SULFONATE 15 G/60 ML BOT PO SCH (11:00)
[2020-06-14] MEDS: FLUCONAZOLE 100MG/50ML in BAG IV SCH (14:00)
[2020-06-15] VITALS (90 sets, daily range): BP systolic 82–160; BP diastolic 45–81
[2020-06-15] MEDS: IPRATROPIUM BROMIDE (0.02%) 0.5MG/2.5ML NEB HHN SCH ×4 (02:43→21:26)
[2020-06-15 05:48] LABS: HEMATOCRIT. 28.2 % (42.0-52.0); MEAN CORPUSCULAR HEMOGLOBIN 31.3 pg (28.0-32.0); MEAN CORPUSCULAR VOLUME 97.8 fL (80.0-94.0); MEAN PLATELET VOLUME 9.5 fl (7.4-10.4); PLATELET 224 x1000/uL (130-400); RED BLOOD CELL COUNT 2.89 mill/uL (4.7-6.1); RED CELL DISTRIBUTION WIDTH 15.6 % (11.6-14.6)
[2020-06-15 06:02] LABS: CHLORIDE 114 mEq/L (98-107)
[2020-06-15 06:07] LABS: PHOSPHORUS 3.9 mg/dL (2.5-4.9)
[2020-06-15] MEDS: BLOOD SUGAR DIAGNOSTIC STRIP TEST SCH ×4 (06:21→21:27)
[2020-06-15] MEDS: INSULIN LISPRO 100 UNITS/ML SUBCUT SCH ×4 (06:21→21:00)
[2020-06-15] MEDS: METHYLPREDNISOLONE SOD SUCC 40 MG/ML VIAL IV SCH ×3 (06:29→21:27)
[2020-06-15] MEDS: MIDAZOLAM 100MG/100ML PMX 100 ML IV PRN (06:30)
[2020-06-15] MEDS: FAMOTIDINE 20MG TABLET PO SCH ×2 (08:34→21:27)
[2020-06-15] MEDS: CHOLECALCIFEROL (D3) 1000 UNIT TABLET PO SCH (08:34)
[2020-06-15] MEDS: ASPIRIN 81MG EC TABLET PO SCH (08:34)
[2020-06-15] MEDS: DOCUSATE SODIUM SUGAR FREE 100MG/10ML UDC NG SCH ×2 (08:34→17:33)
[2020-06-15] MEDS: ZINC SULFATE 220 MG ( 50 ) CAPSULE PO SCH (08:34)
[2020-06-15] MEDS: ASCORBIC ACID 500 MG TABLET PO SCH ×2 (08:35→21:27)
[2020-06-15] MEDS: ENOXAPARIN 40MG/0.4ML SYR SUBCUT SCH (08:35)
[2020-06-15] MEDS: AMLODIPINE 5MG TABLET PO SCH (08:35)
[2020-06-15 08:46] LABS: BG BASE EXCESS 3.3 mmol/L (-2.0-2.0); BG CARBOXYHEMOGLOBIN 0.7 % (0.5-1.5); BG DEOXYHEMOGLOBIN 3.7 % (0.0-5.0); BG HCO3 ACT 30.1 mmol/L (22.0-26.0); BG METHEMOGLOBIN 0.3 % (0.0-1.5); BG OXYGEN SATURATION 96.3 % (92.0-98.5); BG OXYHEMOGLOBIN 95.3 % (94.0-97.0); BG PCO2 58.6 mmHg (35.0-45.0); BG PH 7.329 (7.350-7.450); BG PO2 96.6 mmHg (75.0-100.0); BG SAMPLE SITE RIGHT RADIAL; BG TOTAL HEMOGLOBIN 9.3 g/dL (12.0-18.0); BG VENT MODE VENT - AC
[2020-06-15] MEDS: PHENYLEPHRINE 50 MG in DEXT 5% WATER 245 ML IV PRN (10:09)
[2020-06-15 10:50] LABS: NUCLEATED RED BLOOD CELLS 1 /100 WBC; PLATELET ESTIMATE NORMAL
[2020-06-15] MEDS: SODIUM CHLORIDE 0.45% 1,000 ML IV SCH (13:42)
[2020-06-15] MEDS: FENTANYL CITRATE/PF 2,500 MCG in SODIUM CHLORIDE 0.9% 200 ML IV PRN (14:11)
[2020-06-15] MEDS: FLUCONAZOLE 100MG/50ML in BAG IV SCH (14:16)
[2020-06-16] VITALS (60 sets, daily range): BP systolic 87–135; BP diastolic 46–61
[2020-06-16] MEDS: IPRATROPIUM BROMIDE (0.02%) 0.5MG/2.5ML NEB HHN SCH ×4 (02:56→23:23)
[2020-06-16] MEDS: MIDAZOLAM 100MG/100ML PMX 100 ML IV PRN ×2 (03:39→16:56)
[2020-06-16] MEDS: SODIUM CHLORIDE 0.45% 1,000 ML IV SCH (03:41)
[2020-06-16 05:52] LABS: HEMATOCRIT. 27.8 % (42.0-52.0); HEMOGLOBIN. 8.8 g/dL (14.0-18.0); MEAN CORPUSCULAR HEMOGLOBIN 31.2 pg (28.0-32.0); MEAN CORPUSCULAR VOLUME 97.8 fL (80.0-94.0); RED BLOOD CELL COUNT 2.84 mill/uL (4.7-6.1); RED CELL DISTRIBUTION WIDTH 15.4 % (11.6-14.6)
[2020-06-16] MEDS: INSULIN LISPRO 100 UNITS/ML SUBCUT SCH ×4 (05:57→21:29)
[2020-06-16] MEDS: METHYLPREDNISOLONE SOD SUCC 40 MG/ML VIAL IV SCH ×3 (05:57→21:28)
[2020-06-16 06:05] LABS: CHLORIDE 112 mEq/L (98-107)
[2020-06-16 06:14] LABS: PHOSPHORUS 3.4 mg/dL (2.5-4.9)
[2020-06-16] MEDS: BLOOD SUGAR DIAGNOSTIC STRIP TEST SCH ×4 (07:02→21:25)
[2020-06-16 08:09] LABS: MICROALBUMIN RANDOM URINE 38.5 ug/mL (Not Estab.)
[2020-06-16] MEDS: ENOXAPARIN 40MG/0.4ML SYR SUBCUT SCH (08:49)
[2020-06-16] MEDS: DOCUSATE SODIUM SUGAR FREE 100MG/10ML UDC NG SCH ×2 (08:49→17:18)
[2020-06-16] MEDS: ASCORBIC ACID 500 MG TABLET PO SCH ×2 (08:49→21:28)
[2020-06-16] MEDS: ASPIRIN 81MG EC TABLET PO SCH (08:49)
[2020-06-16] MEDS: CHOLECALCIFEROL (D3) 1000 UNIT TABLET PO SCH (08:49)
[2020-06-16] MEDS: ZINC SULFATE 220 MG ( 50 ) CAPSULE PO SCH (08:50)
[2020-06-16] MEDS: FAMOTIDINE 20MG TABLET PO SCH ×2 (08:50→21:28)
[2020-06-16 09:34] LABS: BG BASE EXCESS 4.9 mmol/L (-2.0-2.0); BG CARBOXYHEMOGLOBIN 0.9 % (0.5-1.5); BG DEOXYHEMOGLOBIN 5.9 % (0.0-5.0); BG FRACTION INSPIRED OXYGEN 70; BG HCO3 ACT 31.5 mmol/L (22.0-26.0); BG METHEMOGLOBIN 0.2 % (0.0-1.5); BG PCO2 58.7 mmHg (35.0-45.0); BG PH 7.347 (7.350-7.450); BG PO2 78.8 mmHg (75.0-100.0); BG SAMPLE SITE RIGHT RADIAL; BG TOTAL HEMOGLOBIN 8.9 g/dL (12.0-18.0); BG VENT MODE VENT - AC
[2020-06-16 09:46] LABS: PLATELET ESTIMATE NORMAL
[2020-06-16 09:47] LABS: MEAN PLATELET VOLUME 9.9 fl (7.4-10.4); PLATELET 285 x1000/uL (130-400)
[2020-06-16] MEDS: PHENYLEPHRINE 50 MG in DEXT 5% WATER 245 ML IV PRN ×2 (11:36→14:08)
[2020-06-16] MEDS: FENTANYL CITRATE/PF 2,500 MCG in SODIUM CHLORIDE 0.9% 200 ML IV PRN (14:07)
[2020-06-16] MEDS: FLUCONAZOLE 100MG/50ML in BAG IV SCH (16:00)
[2020-06-17] VITALS (105 sets, daily range): BP systolic 58–145; BP diastolic 30–79
[2020-06-17] MEDS: PHENYLEPHRINE 50 MG in DEXT 5% WATER 245 ML IV PRN ×2 (02:51→07:33)
[2020-06-17 05:42] LABS: MEAN CORPUSCULAR HEMOGLOBIN 30.7 pg (28.0-32.0); MEAN PLATELET VOLUME 9.8 fl (7.4-10.4); PLATELET 255 x1000/uL (130-400); RED BLOOD CELL COUNT 1.88 mill/uL (4.7-6.1); RED CELL DISTRIBUTION WIDTH 15.6 % (11.6-14.6)
[2020-06-17 05:50] LABS: CHLORIDE 114 mEq/L (98-107)
[2020-06-17 06:15] LABS: HEMOGLOBIN. 5.8 g/dL (14.0-18.0)
[2020-06-17 06:16] LABS: HEMATOCRIT. 18.7 % (42.0-52.0)
[2020-06-17] MEDS: METHYLPREDNISOLONE SOD SUCC 40 MG/ML VIAL IV SCH ×3 (06:36→21:33)
[2020-06-17] MEDS: BLOOD SUGAR DIAGNOSTIC STRIP TEST SCH ×4 (06:36→21:33)
[2020-06-17] MEDS: INSULIN LISPRO 100 UNITS/ML SUBCUT SCH ×4 (06:37→21:33)
[2020-06-17 06:58] LABS: BG CARBOXYHEMOGLOBIN 0.8 % (0.5-1.5); BG DEOXYHEMOGLOBIN 7.4 % (0.0-5.0); BG FRACTION INSPIRED OXYGEN 70; BG HCO3 ACT 24.2 mmol/L (22.0-26.0); BG METHEMOGLOBIN 0.3 % (0.0-1.5); BG OXYGEN SATURATION 92.5 % (92.0-98.5); BG OXYHEMOGLOBIN 91.5 % (94.0-97.0); BG PCO2 42.6 mmHg (35.0-45.0); BG PH 7.372 (7.350-7.450); BG PO2 72.5 mmHg (75.0-100.0); BG SAMPLE SITE RIGHT RADIAL; BG TOTAL HEMOGLOBIN 5.4 g/dL (12.0-18.0); BG VENT MODE VENT - P/C
[2020-06-17] MEDS ORDERED: ALBUMIN HUMAN 25GM/100ML (25%) IV NR (07:00)
[2020-06-17] MEDS: IPRATROPIUM BROMIDE (0.02%) 0.5MG/2.5ML NEB HHN SCH ×3 (07:32→21:35)
[2020-06-17 08:41] LABS: NUCLEATED RED BLOOD CELLS 3 /100 WBC; PLATELET ESTIMATE NORMAL
[2020-06-17] MEDS: VASOPRESSIN 20 UNIT in SODIUM CHLORIDE 0.9% 99 ML IV PRN (08:42)
[2020-06-17] MEDS: DEXTROSE 5% WATER 1,000 ML IV SCH (08:59)
[2020-06-17] MEDS: DOCUSATE SODIUM SUGAR FREE 100MG/10ML UDC NG SCH ×2 (09:18→17:10)
[2020-06-17] MEDS: ASCORBIC ACID 500 MG TABLET PO SCH ×2 (09:19→21:33)
[2020-06-17] MEDS: ZINC SULFATE 220 MG ( 50 ) CAPSULE PO SCH (09:19)
[2020-06-17] MEDS: CHOLECALCIFEROL (D3) 1000 UNIT TABLET PO SCH (09:19)
[2020-06-17] MEDS: FAMOTIDINE 20MG TABLET PO SCH ×2 (09:19→21:33)
[2020-06-17] MEDS: PHENYLEPHRINE 100 MG in DEXT 5% WATER 240 ML IV PRN ×2 (10:40→20:08)
[2020-06-17] MEDS: FLUCONAZOLE 100MG/50ML in BAG IV SCH (12:54)
[2020-06-17] MEDS: FENTANYL CITRATE/PF 2,500 MCG in SODIUM CHLORIDE 0.9% 200 ML IV PRN (13:05)
[2020-06-17 16:12] LABS: HEMATOCRIT 19.1 % (42.0-52.0); HEMOGLOBIN 6.2 g/dL (14.0-18.0)
[2020-06-18] VITALS (96 sets, daily range): BP systolic 53–135; BP diastolic 31–72
[2020-06-18 00:01] LABS: HEMATOCRIT 25.5 % (42.0-52.0); HEMOGLOBIN 8.2 g/dL (14.0-18.0)
[2020-06-18] MEDS: FENTANYL CITRATE/PF 2,500 MCG in SODIUM CHLORIDE 0.9% 200 ML IV PRN ×2 (00:39→12:14)
[2020-06-18] MEDS: MIDAZOLAM 100MG/100ML PMX 100 ML IV PRN (00:40)
[2020-06-18] MEDS: IPRATROPIUM BROMIDE (0.02%) 0.5MG/2.5ML NEB HHN SCH ×4 (01:13→20:27)
[2020-06-18] MEDS ORDERED: INSULIN LISPRO 100 UNITS/ML SUBCUT SCH (03:45)
[2020-06-18] MEDS: PHENYLEPHRINE 100 MG in DEXT 5% WATER 240 ML IV PRN ×3 (03:45→19:37)
[2020-06-18] MEDS: METHYLPREDNISOLONE SOD SUCC 40 MG/ML VIAL IV SCH ×3 (05:06→21:35)
[2020-06-18] MEDS: DEXTROSE 5% WATER 1,000 ML IV SCH (05:06)
[2020-06-18] MEDS: BLOOD SUGAR DIAGNOSTIC STRIP TEST SCH ×4 (05:07→23:08)
[2020-06-18] MEDS: INSULIN LISPRO 100 UNITS/ML SUBCUT SCH ×4 (05:07→23:09)
[2020-06-18 05:41] LABS: HEMATOCRIT. 23.2 % (42.0-52.0); HEMOGLOBIN. 7.5 g/dL (14.0-18.0); MEAN CORPUSCULAR HEMOGLOBIN 30.4 pg (28.0-32.0); MEAN CORPUSCULAR VOLUME 94.2 fL (80.0-94.0); MEAN PLATELET VOLUME 9.9 fl (7.4-10.4); PLATELET 264 x1000/uL (130-400); RED BLOOD CELL COUNT 2.46 mill/uL (4.7-6.1); RED CELL DISTRIBUTION WIDTH 15.1 % (11.6-14.6)
[2020-06-18 05:46] LABS: CHLORIDE 111 mEq/L (98-107)
[2020-06-18 08:01] LABS: NUCLEATED RED BLOOD CELLS 4 /100 WBC; PLATELET ESTIMATE NORMAL
[2020-06-18] MEDS: FAMOTIDINE 20MG TABLET PO SCH (08:36)
[2020-06-18] MEDS: CHOLECALCIFEROL (D3) 1000 UNIT TABLET PO SCH (08:36)
[2020-06-18] MEDS: DOCUSATE SODIUM SUGAR FREE 100MG/10ML UDC NG SCH ×2 (08:36→17:31)
[2020-06-18] MEDS: ASCORBIC ACID 500 MG TABLET PO SCH ×2 (08:37→21:35)
[2020-06-18] MEDS: ZINC SULFATE 220 MG ( 50 ) CAPSULE PO SCH (08:42)
[2020-06-18] MEDS ORDERED: BISACODYL 10MG SUPP PR SCH (09:00)
[2020-06-18 10:12] LABS: BG BASE EXCESS 0.5 mmol/L (-2.0-2.0); BG CARBOXYHEMOGLOBIN 0.8 % (0.5-1.5); BG DEOXYHEMOGLOBIN 1.9 % (0.0-5.0); BG FRACTION INSPIRED OXYGEN 100; BG HCO3 ACT 28.9 mmol/L (22.0-26.0); BG METHEMOGLOBIN 0.3 % (0.0-1.5); BG OXYGEN SATURATION 98.1 % (92.0-98.5); BG PCO2 73.2 mmHg (35.0-45.0); BG PH 7.214 (7.350-7.450); BG PO2 146.7 mmHg (75.0-100.0); BG SAMPLE SITE RIGHT RADIAL; BG TOTAL HEMOGLOBIN 7.7 g/dL (12.0-18.0); BG VENT MODE VENT - P/C
[2020-06-18] MEDS: FAMOTIDINE 20MG/2ML VIAL IV SCH (12:01)
[2020-06-18] MEDS: FLUCONAZOLE 100MG/50ML in BAG IV SCH (17:46)
[2020-06-18] MEDS ORDERED: FAMOTIDINE 20MG/2ML VIAL IV SCH (21:00)
[2020-06-19] VITALS (97 sets, daily range): BP systolic 81–142; BP diastolic 44–74
[2020-06-19] MEDS: DEXTROSE 5% WATER 1,000 ML IV SCH ×2 (00:05→15:58)
[2020-06-19] MEDS: FENTANYL CITRATE/PF 2,500 MCG in SODIUM CHLORIDE 0.9% 200 ML IV PRN ×2 (01:31→14:31)
[2020-06-19 05:21] LABS: HEMATOCRIT. 21.6 % (42.0-52.0); HEMOGLOBIN. 7.1 g/dL (14.0-18.0); MEAN CORPUSCULAR HEMOGLOBIN 31.2 pg (28.0-32.0); MEAN PLATELET VOLUME 9.3 fl (7.4-10.4); PLATELET 269 x1000/uL (130-400); RED BLOOD CELL COUNT 2.28 mill/uL (4.7-6.1)
[2020-06-19] MEDS: METHYLPREDNISOLONE SOD SUCC 40 MG/ML VIAL IV SCH ×3 (05:25→21:26)
[2020-06-19] MEDS: INSULIN LISPRO 100 UNITS/ML SUBCUT SCH ×3 (05:25→17:22)
[2020-06-19] MEDS: BLOOD SUGAR DIAGNOSTIC STRIP TEST SCH ×3 (05:25→17:22)
[2020-06-19 05:26] LABS: CHLORIDE 110 mEq/L (98-107)
[2020-06-19 05:35] LABS: PHOSPHORUS 3.6 mg/dL (2.5-4.9)
[2020-06-19] MEDS: PHENYLEPHRINE 100 MG in DEXT 5% WATER 240 ML IV PRN ×2 (06:19→21:19)
[2020-06-19] MEDS: DOCUSATE SODIUM SUGAR FREE 100MG/10ML UDC NG SCH ×2 (08:56→17:00)
[2020-06-19] MEDS: FAMOTIDINE 20MG/2ML VIAL IV SCH (08:57)
[2020-06-19] MEDS: ZINC SULFATE 220 MG ( 50 ) CAPSULE PO SCH (08:57)
[2020-06-19] MEDS: ASCORBIC ACID 500 MG TABLET PO SCH (08:57)
[2020-06-19] MEDS: CHOLECALCIFEROL (D3) 1000 UNIT TABLET PO SCH (09:00)
[2020-06-19] MEDS: IPRATROPIUM BROMIDE (0.02%) 0.5MG/2.5ML NEB HHN SCH ×3 (09:07→20:23)
[2020-06-19 09:39] LABS: BG BASE EXCESS 2.7 mmol/L (-2.0-2.0); BG CARBOXYHEMOGLOBIN 1.1 % (0.5-1.5); BG DEOXYHEMOGLOBIN 5.8 % (0.0-5.0); BG FRACTION INSPIRED OXYGEN 80; BG METHEMOGLOBIN 0.2 % (0.0-1.5); BG OXYGEN SATURATION 94.1 % (92.0-98.5); BG OXYHEMOGLOBIN 92.9 % (94.0-97.0); BG PCO2 56.1 mmHg (35.0-45.0); BG PH 7.331 (7.350-7.450); BG PO2 74.1 mmHg (75.0-100.0); BG SAMPLE SITE RIGHT RADIAL; BG VENT MODE VENT - P/C
[2020-06-19] MEDS ORDERED: CLONIDINE 0.1MG TABLET GT PRN (13:24)
[2020-06-19] MEDS ORDERED: MAGNESIUM/ALUMINUM HYDROXIDE/SIMETHICONE 30ML UDC GT PRN (13:25)
[2020-06-19] MEDS ORDERED: GUAIFENESIN 200MG/10ML SUGAR FREE UDC GT PRN (13:25)
[2020-06-19] MEDS: FLUCONAZOLE 100MG/50ML in BAG IV SCH (13:26)
[2020-06-19 14:30] LABS: NUCLEATED RED BLOOD CELLS 7 /100 WBC; PLATELET ESTIMATE NORMAL
[2020-06-19] MEDS: MIDAZOLAM 100MG/100ML PMX 100 ML IV PRN (14:43)
[2020-06-19] MEDS: PANTOPRAZOLE SODIUM 40 MG/VIAL IV SCH (17:36)
[2020-06-19] MEDS: ASCORBIC ACID 500 MG TABLET GT SCH (19:45)
[2020-06-20] VITALS (99 sets, daily range): BP systolic 92–146; BP diastolic 45–81
[2020-06-20] MEDS: IPRATROPIUM BROMIDE (0.02%) 0.5MG/2.5ML NEB HHN SCH ×4 (00:15→20:36)
[2020-06-20] MEDS: BLOOD SUGAR DIAGNOSTIC STRIP TEST SCH ×5 (00:21→23:28)
[2020-06-20] MEDS: FENTANYL CITRATE/PF 2,500 MCG in SODIUM CHLORIDE 0.9% 200 ML IV PRN ×2 (04:28→15:56)
[2020-06-20] MEDS: INSULIN LISPRO 100 UNITS/ML SUBCUT SCH ×5 (05:31→23:29)
[2020-06-20 05:37] LABS: MEAN CORPUSCULAR HEMOGLOBIN 31.4 pg (28.0-32.0); MEAN CORPUSCULAR VOLUME 95.4 fL (80.0-94.0); MEAN PLATELET VOLUME 9.4 fl (7.4-10.4); PLATELET 321 x1000/uL (130-400); RED BLOOD CELL COUNT 2.14 mill/uL (4.7-6.1); RED CELL DISTRIBUTION WIDTH 15.4 % (11.6-14.6)
[2020-06-20 05:39] LABS: CHLORIDE 110 mEq/L (98-107)
[2020-06-20 05:54] LABS: HEMATOCRIT. 20.4 % (42.0-52.0); HEMOGLOBIN. 6.7 g/dL (14.0-18.0)
[2020-06-20] MEDS: PANTOPRAZOLE SODIUM 40 MG/VIAL IV SCH ×2 (06:34→18:13)
[2020-06-20] MEDS: METHYLPREDNISOLONE SOD SUCC 40 MG/ML VIAL IV SCH ×3 (06:35→22:09)
[2020-06-20 08:40] LABS: NUCLEATED RED BLOOD CELLS 5 /100 WBC; PLATELET ESTIMATE NORMAL
[2020-06-20] MEDS: DOCUSATE SODIUM SUGAR FREE 100MG/10ML UDC NG SCH ×2 (09:00→16:34)
[2020-06-20] MEDS ORDERED: FAMOTIDINE 20MG/2ML VIAL IV SCH (09:00)
[2020-06-20] MEDS: ZINC SULFATE 220 MG ( 50 ) CAPSULE GT SCH (09:00)
[2020-06-20] MEDS: CHOLECALCIFEROL (D3) 1000 UNIT TABLET GT SCH (09:00)
[2020-06-20] MEDS: ASCORBIC ACID 500 MG TABLET GT SCH ×2 (09:00→20:20)
[2020-06-20 09:11] LABS: BG BASE EXCESS 5.7 mmol/L (-2.0-2.0); BG CARBOXYHEMOGLOBIN 0.7 % (0.5-1.5); BG DEOXYHEMOGLOBIN 9.6 % (0.0-5.0); BG FRACTION INSPIRED OXYGEN 80; BG HCO3 ACT 32.3 mmol/L (22.0-26.0); BG METHEMOGLOBIN 0.1 % (0.0-1.5); BG OXYGEN SATURATION 90.3 % (92.0-98.5); BG OXYHEMOGLOBIN 89.6 % (94.0-97.0); BG PH 7.328 (7.350-7.450); BG PO2 60.7 mmHg (75.0-100.0); BG SAMPLE SITE RIGHT RADIAL; BG TOTAL HEMOGLOBIN 6.6 g/dL (12.0-18.0); BG TOTAL RESPIRATORY RATE 30 b/min; BG VENT MODE VENT - P/C
[2020-06-20] MEDS: DEXTROSE 5% WATER 1,000 ML IV SCH (14:06)
[2020-06-20 16:44] LABS: HEMATOCRIT. 26.7 % (42.0-52.0); MEAN CORPUSCULAR HEMOGLOBIN 31.2 pg (28.0-32.0); MEAN CORPUSCULAR VOLUME 93.1 fL (80.0-94.0); MEAN PLATELET VOLUME 9.3 fl (7.4-10.4); PLATELET 316 x1000/uL (130-400); RED BLOOD CELL COUNT 2.87 mill/uL (4.7-6.1); RED CELL DISTRIBUTION WIDTH 14.3 % (11.6-14.6)
[2020-06-20 17:33] LABS: NUCLEATED RED BLOOD CELLS 4 /100 WBC; PLATELET ESTIMATE NORMAL
[2020-06-20] MEDS: MIDAZOLAM 100MG/100ML PMX 100 ML IV PRN (19:28)
[2020-06-20] MEDS: LACTULOSE 20G/30ML UDC PO SCH (20:21)
[2020-06-21] VITALS (94 sets, daily range): BP systolic 103–140; BP diastolic 57–93
[2020-06-21] MEDS: IPRATROPIUM BROMIDE (0.02%) 0.5MG/2.5ML NEB HHN SCH ×4 (01:19→20:17)
[2020-06-21 05:50] LABS: HEMOGLOBIN. 8.7 g/dL (14.0-18.0); MEAN PLATELET VOLUME 9.2 fl (7.4-10.4); PLATELET 336 x1000/uL (130-400); RED BLOOD CELL COUNT 2.79 mill/uL (4.7-6.1)
[2020-06-21] MEDS: BLOOD SUGAR DIAGNOSTIC STRIP TEST SCH ×3 (05:55→18:00)
[2020-06-21] MEDS: INSULIN LISPRO 100 UNITS/ML SUBCUT SCH ×3 (05:55→18:00)
[2020-06-21 06:00] LABS: INR 1.2; PARTIAL THROMBOPLASTIN TIME 29.2 sec (23.4-31.0); PROTHROMBIN TIME 12.4 sec (9.6-11.0)
[2020-06-21 06:02] LABS: CHLORIDE 107 mEq/L (98-107)
[2020-06-21 06:09] LABS: TOTAL IRON BINDING CAPACITY 151 ug/dL (250-450)
[2020-06-21] MEDS: METHYLPREDNISOLONE SOD SUCC 40 MG/ML VIAL IV SCH ×3 (06:34→20:44)
[2020-06-21] MEDS: PANTOPRAZOLE SODIUM 40 MG/VIAL IV SCH ×2 (06:34→18:29)
[2020-06-21] MEDS: ASCORBIC ACID 500 MG TABLET GT SCH ×2 (08:33→20:44)
[2020-06-21] MEDS: ZINC SULFATE 220 MG ( 50 ) CAPSULE GT SCH (08:33)
[2020-06-21] MEDS: DOCUSATE SODIUM SUGAR FREE 100MG/10ML UDC NG SCH ×2 (08:33→16:39)
[2020-06-21] MEDS: CHOLECALCIFEROL (D3) 1000 UNIT TABLET GT SCH (08:33)
[2020-06-21] MEDS: DEXTROSE 5% WATER 1,000 ML IV SCH ×2 (08:34→23:45)
[2020-06-21] MEDS: FENTANYL CITRATE/PF 2,500 MCG in SODIUM CHLORIDE 0.9% 200 ML IV PRN (08:36)
[2020-06-21 10:55] LABS: BG BASE EXCESS 5.6 mmol/L (-2.0-2.0); BG DEOXYHEMOGLOBIN 9.9 % (0.0-5.0); BG FRACTION INSPIRED OXYGEN 80; BG HCO3 ACT 31.9 mmol/L (22.0-26.0); BG METHEMOGLOBIN 0.3 % (0.0-1.5); BG OXYHEMOGLOBIN 88.8 % (94.0-97.0); BG PCO2 56.5 mmHg (35.0-45.0); BG PH 7.369 (7.350-7.450); BG PO2 48.9 mmHg (75.0-100.0); BG SAMPLE SITE RIGHT RADIAL; BG TOTAL HEMOGLOBIN 9.1 g/dL (12.0-18.0); BG VENT MODE VENT - P/C
[2020-06-21] MEDS: SUCRALFATE 1G TABLET NG SCH ×2 (15:30→20:44)
[2020-06-21 16:17] LABS: PLATELET ESTIMATE NORMAL
[2020-06-21] MEDS: PHENYLEPHRINE 100 MG in DEXT 5% WATER 240 ML IV PRN (19:22)
[2020-06-21] MEDS: LACTULOSE 20G/30ML UDC PO SCH (20:44)
[2020-06-22] VITALS (93 sets, daily range): BP systolic 84–137; BP diastolic 35–72
[2020-06-22] MEDS: BLOOD SUGAR DIAGNOSTIC STRIP TEST SCH ×5 (00:07→23:23)
[2020-06-22] MEDS: IPRATROPIUM BROMIDE (0.02%) 0.5MG/2.5ML NEB HHN SCH ×4 (01:03→20:59)
[2020-06-22] MEDS: SUCRALFATE 1G TABLET NG SCH ×4 (05:34→20:00)
[2020-06-22] MEDS: METHYLPREDNISOLONE SOD SUCC 40 MG/ML VIAL IV SCH ×2 (05:34→14:02)
[2020-06-22] MEDS: PANTOPRAZOLE SODIUM 40 MG/VIAL IV SCH ×2 (05:34→17:37)
[2020-06-22] MEDS: INSULIN LISPRO 100 UNITS/ML SUBCUT SCH ×5 (05:35→23:32)
[2020-06-22 05:41] LABS: HEMATOCRIT. 23.3 % (42.0-52.0); MEAN CORPUSCULAR HEMOGLOBIN 32.2 pg (28.0-32.0); MEAN CORPUSCULAR VOLUME 93.7 fL (80.0-94.0); MEAN PLATELET VOLUME 8.7 fl (7.4-10.4); PLATELET 281 x1000/uL (130-400); RED BLOOD CELL COUNT 2.48 mill/uL (4.7-6.1); RED CELL DISTRIBUTION WIDTH 14.8 % (11.6-14.6)
[2020-06-22 05:54] LABS: CHLORIDE 106 mEq/L (98-107)
[2020-06-22] MEDS: FENTANYL CITRATE/PF 2,500 MCG in SODIUM CHLORIDE 0.9% 200 ML IV PRN ×2 (05:55→18:29)
[2020-06-22] MEDS: MIDAZOLAM 100MG/100ML PMX 100 ML IV PRN ×2 (06:29→19:56)
[2020-06-22] MEDS: DOCUSATE SODIUM SUGAR FREE 100MG/10ML UDC NG SCH ×2 (09:00→17:00)
[2020-06-22] MEDS: ZINC SULFATE 220 MG ( 50 ) CAPSULE GT SCH (09:52)
[2020-06-22] MEDS: CHOLECALCIFEROL (D3) 1000 UNIT TABLET GT SCH (09:53)
[2020-06-22] MEDS: ASCORBIC ACID 500 MG TABLET GT SCH ×2 (09:53→20:00)
[2020-06-22 10:13] LABS: BG BASE EXCESS 5.4 mmol/L (-2.0-2.0); BG CARBOXYHEMOGLOBIN 1.1 % (0.5-1.5); BG DEOXYHEMOGLOBIN 3.8 % (0.0-5.0); BG FRACTION INSPIRED OXYGEN 90; BG HCO3 ACT 30.5 mmol/L (22.0-26.0); BG METHEMOGLOBIN 0.1 % (0.0-1.5); BG OXYGEN SATURATION 96.2 % (92.0-98.5); BG PH 7.421 (7.350-7.450); BG PO2 87.6 mmHg (75.0-100.0); BG SAMPLE SITE RIGHT RADIAL; BG TOTAL HEMOGLOBIN 7.8 g/dL (12.0-18.0); BG VENT MODE VENT - P/C
[2020-06-22 13:00] LABS: PLATELET ESTIMATE NORMAL
[2020-06-22] MEDS: DEXTROSE 5% WATER 1,000 ML IV SCH (14:26)
[2020-06-22] MEDS: LACTULOSE 20G/30ML UDC PO SCH (20:00)
[2020-06-23] VITALS (97 sets, daily range): BP systolic 85–140; BP diastolic 50–106
[2020-06-23] MEDS: IPRATROPIUM BROMIDE (0.02%) 0.5MG/2.5ML NEB HHN SCH ×4 (03:32→20:56)
[2020-06-23] MEDS: METHYLPREDNISOLONE SOD SUCC 40 MG/ML VIAL IV SCH ×4 (04:57→21:42)
[2020-06-23] MEDS: BLOOD SUGAR DIAGNOSTIC STRIP TEST SCH ×4 (05:02→23:59)
[2020-06-23] MEDS: PANTOPRAZOLE SODIUM 40 MG/VIAL IV SCH ×2 (05:02→17:02)
[2020-06-23] MEDS: INSULIN LISPRO 100 UNITS/ML SUBCUT SCH ×4 (05:26→23:59)
[2020-06-23] MEDS: SUCRALFATE 1G TABLET NG SCH (05:33)
[2020-06-23 06:09] LABS: CHLORIDE 106 mEq/L (98-107)
[2020-06-23 06:18] LABS: HEMATOCRIT. 23.6 % (42.0-52.0); HEMOGLOBIN. 7.8 g/dL (14.0-18.0); MEAN CORPUSCULAR HEMOGLOBIN 31.9 pg (28.0-32.0); MEAN CORPUSCULAR VOLUME 96.4 fL (80.0-94.0); MEAN PLATELET VOLUME 8.9 fl (7.4-10.4); PHOSPHORUS 2.1 mg/dL (2.5-4.9); PLATELET 262 x1000/uL (130-400); RED BLOOD CELL COUNT 2.45 mill/uL (4.7-6.1); RED CELL DISTRIBUTION WIDTH 15.2 % (11.6-14.6)
[2020-06-23] MEDS: FENTANYL CITRATE/PF 2,500 MCG in SODIUM CHLORIDE 0.9% 200 ML IV PRN ×2 (06:35→19:46)
[2020-06-23] MEDS: CHOLECALCIFEROL (D3) 1000 UNIT TABLET GT SCH (08:16)
[2020-06-23] MEDS: DOCUSATE SODIUM SUGAR FREE 100MG/10ML UDC NG SCH ×2 (08:16→16:51)
[2020-06-23] MEDS: ACETAMINOPHEN 650MG/20.3ML UDC GT PRN (08:16)
[2020-06-23] MEDS: ASCORBIC ACID 500 MG TABLET GT SCH ×2 (08:16→20:28)
[2020-06-23] MEDS: ZINC SULFATE 220 MG ( 50 ) CAPSULE GT SCH (08:17)
[2020-06-23 10:10] LABS: PLATELET ESTIMATE NORMAL
[2020-06-23] MEDS: MIDAZOLAM 100MG/100ML PMX 100 ML IV PRN (10:33)
[2020-06-23 11:50] LABS: BG BASE EXCESS 3.1 mmol/L (-2.0-2.0); BG CARBOXYHEMOGLOBIN 1.2 % (0.5-1.5); BG DEOXYHEMOGLOBIN 3.8 % (0.0-5.0); BG FRACTION INSPIRED OXYGEN 100; BG HCO3 ACT 28.1 mmol/L (22.0-26.0); BG METHEMOGLOBIN 0.3 % (0.0-1.5); BG OXYGEN SATURATION 96.1 % (92.0-98.5); BG OXYHEMOGLOBIN 94.7 % (94.0-97.0); BG PCO2 44.9 mmHg (35.0-45.0); BG PH 7.414 (7.350-7.450); BG PO2 87.9 mmHg (75.0-100.0); BG SAMPLE SITE LEFT RADIAL; BG TOTAL HEMOGLOBIN 8.2 g/dL (12.0-18.0); BG VENT MODE VENT - P/C
[2020-06-23] MEDS: SUCRALFATE 1 G/10 ML UDC PO SCH ×3 (12:49→20:27)
[2020-06-23] MEDS: LACTULOSE 20G/30ML UDC PO SCH (20:27)
[2020-06-23] MEDS: DEXTROSE 5% WATER 1,000 ML IV SCH (20:27)
[2020-06-24] VITALS (101 sets, daily range): BP systolic 77–138; BP diastolic 26–75
[2020-06-24] MEDS: ACETAMINOPHEN 650MG/20.3ML UDC GT PRN (01:18)
[2020-06-24] MEDS: IPRATROPIUM BROMIDE (0.02%) 0.5MG/2.5ML NEB HHN SCH ×4 (02:48→20:32)
[2020-06-24] MEDS: BLOOD SUGAR DIAGNOSTIC STRIP TEST SCH ×4 (05:05→23:47)
[2020-06-24] MEDS: INSULIN LISPRO 100 UNITS/ML SUBCUT SCH ×4 (05:05→23:47)
[2020-06-24] MEDS: METHYLPREDNISOLONE SOD SUCC 40 MG/ML VIAL IV SCH ×3 (05:25→21:13)
[2020-06-24] MEDS: PANTOPRAZOLE SODIUM 40 MG/VIAL IV SCH ×2 (05:25→17:49)
[2020-06-24] MEDS: SUCRALFATE 1 G/10 ML UDC PO SCH ×4 (05:25→20:40)
[2020-06-24 05:49] LABS: MEAN CORPUSCULAR HEMOGLOBIN 31.5 pg (28.0-32.0); MEAN CORPUSCULAR VOLUME 95.2 fL (80.0-94.0); MEAN PLATELET VOLUME 8.7 fl (7.4-10.4); PLATELET 254 x1000/uL (130-400); RED BLOOD CELL COUNT 2.16 mill/uL (4.7-6.1); RED CELL DISTRIBUTION WIDTH 15.2 % (11.6-14.6)
[2020-06-24 06:03] LABS: CHLORIDE 107 mEq/L (98-107)
[2020-06-24 06:13] LABS: PHOSPHORUS 1.7 mg/dL (2.5-4.9)
[2020-06-24 06:49] LABS: HEMOGLOBIN. 6.8 g/dL (14.0-18.0)
[2020-06-24 06:50] LABS: HEMATOCRIT. 20.6 % (42.0-52.0)
[2020-06-24] MEDS: DOCUSATE SODIUM SUGAR FREE 100MG/10ML UDC NG SCH ×2 (08:27→16:28)
[2020-06-24] MEDS: ASCORBIC ACID 500 MG TABLET GT SCH ×2 (08:32→20:40)
[2020-06-24] MEDS: ZINC SULFATE 220 MG ( 50 ) CAPSULE GT SCH (08:32)
[2020-06-24] MEDS: CHOLECALCIFEROL (D3) 1000 UNIT TABLET GT SCH (08:32)
[2020-06-24 09:07] LABS: BG BASE EXCESS 4.4 mmol/L (-2.0-2.0); BG CARBOXYHEMOGLOBIN 1.4 % (0.5-1.5); BG DEOXYHEMOGLOBIN 1.1 % (0.0-5.0); BG FRACTION INSPIRED OXYGEN 100; BG HCO3 ACT 28.9 mmol/L (22.0-26.0); BG METHEMOGLOBIN 0.3 % (0.0-1.5); BG OXYGEN SATURATION 98.9 % (92.0-98.5); BG OXYHEMOGLOBIN 97.2 % (94.0-97.0); BG PCO2 42.7 mmHg (35.0-45.0); BG PH 7.448 (7.350-7.450); BG SAMPLE SITE RIGHT RADIAL; BG TOTAL HEMOGLOBIN 6.7 g/dL (12.0-18.0); BG TOTAL RESPIRATORY RATE 35 b/min; BG VENT MODE VENT - P/C
[2020-06-24 11:27] LABS: NUCLEATED RED BLOOD CELLS 3 /100 WBC
[2020-06-24 11:36] LABS: PLATELET ESTIMATE NORMAL
[2020-06-24] MEDS: FENTANYL CITRATE/PF 2,500 MCG in SODIUM CHLORIDE 0.9% 200 ML IV PRN ×2 (12:19→20:36)
[2020-06-24] MEDS: MIDAZOLAM 100MG/100ML PMX 100 ML IV PRN (13:22)
[2020-06-24 15:49] LABS: HEMATOCRIT 26.4 % (42.0-52.0); HEMOGLOBIN 8.9 g/dL (14.0-18.0)
[2020-06-24] MEDS: LACTULOSE 20G/30ML UDC PO SCH (20:39)
[2020-06-24] MEDS: DEXTROSE 5% WATER 1,000 ML IV SCH (21:13)
[2020-06-25] VITALS (96 sets, daily range): BP systolic 89–127; BP diastolic 51–75
[2020-06-25] MEDS: IPRATROPIUM BROMIDE (0.02%) 0.5MG/2.5ML NEB HHN SCH ×4 (02:00→21:09)
[2020-06-25] MEDS: FENTANYL CITRATE/PF 2,500 MCG in SODIUM CHLORIDE 0.9% 200 ML IV PRN ×3 (05:07→20:01)
[2020-06-25] MEDS: INSULIN LISPRO 100 UNITS/ML SUBCUT SCH (05:30)
[2020-06-25] MEDS: BLOOD SUGAR DIAGNOSTIC STRIP TEST SCH (05:30)
[2020-06-25] MEDS: METHYLPREDNISOLONE SOD SUCC 40 MG/ML VIAL IV SCH ×3 (05:30→21:02)
[2020-06-25] MEDS: PANTOPRAZOLE SODIUM 40 MG/VIAL IV SCH ×2 (05:30→16:57)
[2020-06-25] MEDS: SUCRALFATE 1 G/10 ML UDC PO SCH ×4 (05:30→20:55)
[2020-06-25 05:42] LABS: HEMATOCRIT. 26.6 % (42.0-52.0); MEAN PLATELET VOLUME 8.9 fl (7.4-10.4); PLATELET 222 x1000/uL (130-400); RED BLOOD CELL COUNT 2.89 mill/uL (4.7-6.1); RED CELL DISTRIBUTION WIDTH 14.8 % (11.6-14.6)
[2020-06-25 05:48] LABS: CHLORIDE 108 mEq/L (98-107)
[2020-06-25] MEDS: DOCUSATE SODIUM SUGAR FREE 100MG/10ML UDC NG SCH ×2 (07:46→16:55)
[2020-06-25] MEDS: ZINC SULFATE 220 MG ( 50 ) CAPSULE GT SCH (08:02)
[2020-06-25] MEDS: CHOLECALCIFEROL (D3) 1000 UNIT TABLET GT SCH (08:02)
[2020-06-25] MEDS: ASCORBIC ACID 500 MG TABLET GT SCH ×2 (08:02→20:55)
[2020-06-25] MEDS: MIDAZOLAM 100MG/100ML PMX 100 ML IV PRN ×2 (09:10→21:55)
[2020-06-25 12:06] LABS: PLATELET ESTIMATE NORMAL
[2020-06-25 13:07] LABS: BG BASE EXCESS 1.7 mmol/L (-2.0-2.0); BG CARBOXYHEMOGLOBIN 1.4 % (0.5-1.5); BG FRACTION INSPIRED OXYGEN 75; BG HCO3 ACT 26.9 mmol/L (22.0-26.0); BG METHEMOGLOBIN 0.3 % (0.0-1.5); BG OXYGEN SATURATION 93.9 % (92.0-98.5); BG OXYHEMOGLOBIN 92.3 % (94.0-97.0); BG PCO2 45.3 mmHg (35.0-45.0); BG PH 7.392 (7.350-7.450); BG PO2 74.4 mmHg (75.0-100.0); BG SAMPLE SITE LEFT RADIAL; BG VENT MODE VENT - P/C
[2020-06-25] MEDS: LACTULOSE 20G/30ML UDC PO SCH (20:55)
[2020-06-25] MEDS: DEXTROSE 5% WATER 1,000 ML IV SCH (20:56)
[2020-06-26] VITALS (91 sets, daily range): BP systolic 99–134; BP diastolic 53–73
[2020-06-26] MEDS: IPRATROPIUM BROMIDE (0.02%) 0.5MG/2.5ML NEB HHN SCH ×4 (00:27→20:19)
[2020-06-26 05:15] LABS: HEMATOCRIT. 25.9 % (42.0-52.0); HEMOGLOBIN. 8.7 g/dL (14.0-18.0); MEAN CORPUSCULAR HEMOGLOBIN 30.8 pg (28.0-32.0); MEAN CORPUSCULAR VOLUME 91.8 fL (80.0-94.0); MEAN PLATELET VOLUME 8.4 fl (7.4-10.4); PLATELET 227 x1000/uL (130-400); RED BLOOD CELL COUNT 2.83 mill/uL (4.7-6.1); RED CELL DISTRIBUTION WIDTH 14.8 % (11.6-14.6)
[2020-06-26 05:21] LABS: CHLORIDE 106 mEq/L (98-107)
[2020-06-26] MEDS: SUCRALFATE 1 G/10 ML UDC PO SCH ×4 (05:26→21:17)
[2020-06-26] MEDS: METHYLPREDNISOLONE SOD SUCC 40 MG/ML VIAL IV SCH ×3 (05:26→21:17)
[2020-06-26] MEDS: PANTOPRAZOLE SODIUM 40 MG/VIAL IV SCH ×2 (05:26→17:40)
[2020-06-26] MEDS: FENTANYL CITRATE/PF 2,500 MCG in SODIUM CHLORIDE 0.9% 200 ML IV PRN ×2 (07:24→19:54)
[2020-06-26 08:16] LABS: PLATELET ESTIMATE NORMAL
[2020-06-26 08:40] LABS: BG BASE EXCESS 5.2 mmol/L (-2.0-2.0); BG CARBOXYHEMOGLOBIN 1.3 % (0.5-1.5); BG DEOXYHEMOGLOBIN 14.7 % (0.0-5.0); BG FRACTION INSPIRED OXYGEN 55; BG HCO3 ACT 30.5 mmol/L (22.0-26.0); BG METHEMOGLOBIN 0.3 % (0.0-1.5); BG OXYGEN SATURATION 85.1 % (92.0-98.5); BG OXYHEMOGLOBIN 83.7 % (94.0-97.0); BG PCO2 49.4 mmHg (35.0-45.0); BG PH 7.409 (7.350-7.450); BG PO2 49.7 mmHg (75.0-100.0); BG SAMPLE SITE RIGHT RADIAL; BG TOTAL HEMOGLOBIN 9.3 g/dL (12.0-18.0); BG TOTAL RESPIRATORY RATE 34 b/min; BG VENT MODE VENT - P/C
[2020-06-26] MEDS: DOCUSATE SODIUM SUGAR FREE 100MG/10ML UDC NG SCH ×2 (09:23→17:41)
[2020-06-26] MEDS: ZINC SULFATE 220 MG ( 50 ) CAPSULE GT SCH (09:23)
[2020-06-26] MEDS: ASCORBIC ACID 500 MG TABLET GT SCH (09:23)
[2020-06-26] MEDS: CHOLECALCIFEROL (D3) 1000 UNIT TABLET GT SCH (09:24)
[2020-06-26] MEDS: LACTULOSE 20G/30ML UDC PO SCH (21:17)
[2020-06-26] MEDS: MIDAZOLAM HCL 100 MG in SODIUM CHLORIDE 0.9% 100 ML IV PRN (23:21)
[2020-06-27] VITALS (87 sets, daily range): BP systolic 85–148; BP diastolic 51–78
[2020-06-27] MEDS: IPRATROPIUM BROMIDE (0.02%) 0.5MG/2.5ML NEB HHN SCH ×4 (02:09→20:16)
[2020-06-27] MEDS: METHYLPREDNISOLONE SOD SUCC 40 MG/ML VIAL IV SCH ×3 (05:33→20:52)
[2020-06-27] MEDS: SUCRALFATE 1 G/10 ML UDC PO SCH ×4 (05:34→20:51)
[2020-06-27] MEDS: PANTOPRAZOLE SODIUM 40 MG/VIAL IV SCH ×2 (05:34→18:33)
[2020-06-27 05:35] LABS: CHLORIDE 105 mEq/L (98-107); HEMATOCRIT. 24.7 % (42.0-52.0); MEAN CORPUSCULAR HEMOGLOBIN 29.9 pg (28.0-32.0); MEAN CORPUSCULAR VOLUME 91.9 fL (80.0-94.0); MEAN PLATELET VOLUME 8.4 fl (7.4-10.4); PLATELET 236 x1000/uL (130-400); RED BLOOD CELL COUNT 2.69 mill/uL (4.7-6.1); RED CELL DISTRIBUTION WIDTH 14.8 % (11.6-14.6)
[2020-06-27] MEDS: FENTANYL CITRATE/PF 2,500 MCG in SODIUM CHLORIDE 0.9% 200 ML IV PRN ×2 (06:00→16:38)
[2020-06-27 07:47] LABS: PLATELET ESTIMATE NORMAL
[2020-06-27 09:12] LABS: BG BASE EXCESS 2.7 mmol/L (-2.0-2.0); BG CARBOXYHEMOGLOBIN 0.8 % (0.5-1.5); BG DEOXYHEMOGLOBIN 7.4 % (0.0-5.0); BG FRACTION INSPIRED OXYGEN 75; BG HCO3 ACT 26.7 mmol/L (22.0-26.0); BG METHEMOGLOBIN 0.3 % (0.0-1.5); BG OXYGEN SATURATION 92.5 % (92.0-98.5); BG OXYHEMOGLOBIN 91.5 % (94.0-97.0); BG PCO2 38.7 mmHg (35.0-45.0); BG PH 7.457 (7.350-7.450); BG PO2 63.7 mmHg (75.0-100.0); BG SAMPLE SITE LEFT RADIAL; BG TOTAL HEMOGLOBIN 9.5 g/dL (12.0-18.0); BG TOTAL RESPIRATORY RATE 38 b/min; BG VENT MODE VENT - P/C
[2020-06-27] MEDS: DOCUSATE SODIUM SUGAR FREE 100MG/10ML UDC NG SCH ×2 (09:24→16:20)
[2020-06-27] MEDS: LACTULOSE 20G/30ML UDC PO SCH (20:51)
[2020-06-28] VITALS (66 sets, daily range): BP systolic 96–150; BP diastolic 52–85
[2020-06-28] MEDS: IPRATROPIUM BROMIDE (0.02%) 0.5MG/2.5ML NEB HHN SCH ×4 (00:10→20:38)
[2020-06-28] MEDS: DEXTROSE 5% WATER 1,000 ML IV SCH ×2 (00:48→20:02)
[2020-06-28] MEDS: FENTANYL CITRATE/PF 2,500 MCG in SODIUM CHLORIDE 0.9% 200 ML IV PRN ×2 (05:42→14:31)
[2020-06-28 05:45] LABS: HEMATOCRIT. 23.8 % (42.0-52.0); HEMOGLOBIN. 7.8 g/dL (14.0-18.0); MEAN CORPUSCULAR HEMOGLOBIN 30.2 pg (28.0-32.0); MEAN CORPUSCULAR VOLUME 91.7 fL (80.0-94.0); PLATELET 209 x1000/uL (130-400); RED CELL DISTRIBUTION WIDTH 14.7 % (11.6-14.6)
[2020-06-28 05:58] LABS: CHLORIDE 107 mEq/L (98-107)
[2020-06-28] MEDS: PANTOPRAZOLE SODIUM 40 MG/VIAL IV SCH ×2 (06:01→17:01)
[2020-06-28] MEDS: SUCRALFATE 1 G/10 ML UDC PO SCH ×4 (06:01→20:01)
[2020-06-28] MEDS: METHYLPREDNISOLONE SOD SUCC 40 MG/ML VIAL IV SCH ×3 (06:01→21:15)
[2020-06-28] MEDS: MIDAZOLAM HCL 100 MG in SODIUM CHLORIDE 0.9% 100 ML IV PRN (07:47)
[2020-06-28] MEDS: DOCUSATE SODIUM SUGAR FREE 100MG/10ML UDC NG SCH ×2 (09:10→17:01)
[2020-06-28 13:13] LABS: PLATELET ESTIMATE NORMAL
[2020-06-28] MEDS: LACTULOSE 20G/30ML UDC PO SCH (20:01)
[2020-06-29] VITALS (71 sets, daily range): BP systolic 94–138; BP diastolic 49–78
[2020-06-29] MEDS: IPRATROPIUM BROMIDE (0.02%) 0.5MG/2.5ML NEB HHN SCH ×4 (02:20→20:37)
[2020-06-29] MEDS: FENTANYL CITRATE/PF 2,500 MCG in SODIUM CHLORIDE 0.9% 200 ML IV PRN ×3 (02:47→23:36)
[2020-06-29] MEDS: PANTOPRAZOLE SODIUM 40 MG/VIAL IV SCH ×2 (05:30→17:33)
[2020-06-29] MEDS: SUCRALFATE 1 G/10 ML UDC PO SCH ×4 (05:30→20:11)
[2020-06-29] MEDS: METHYLPREDNISOLONE SOD SUCC 40 MG/ML VIAL IV SCH ×3 (05:30→21:23)
[2020-06-29 06:05] LABS: HEMATOCRIT. 24.4 % (42.0-52.0); MEAN CORPUSCULAR HEMOGLOBIN 30.3 pg (28.0-32.0); MEAN CORPUSCULAR VOLUME 92.4 fL (80.0-94.0); MEAN PLATELET VOLUME 8.4 fl (7.4-10.4); PLATELET 205 x1000/uL (130-400); RED BLOOD CELL COUNT 2.64 mill/uL (4.7-6.1); RED CELL DISTRIBUTION WIDTH 15.1 % (11.6-14.6)
[2020-06-29 06:17] LABS: CHLORIDE 105 mEq/L (98-107)
[2020-06-29 08:08] LABS: BG BASE EXCESS 4.6 mmol/L (-2.0-2.0); BG CARBOXYHEMOGLOBIN 1.1 % (0.5-1.5); BG HCO3 ACT 28.8 mmol/L (22.0-26.0); BG METHEMOGLOBIN 0.3 % (0.0-1.5); BG OXYGEN SATURATION 92.9 % (92.0-98.5); BG OXYHEMOGLOBIN 91.6 % (94.0-97.0); BG PCO2 41.4 mmHg (35.0-45.0); BG PH 7.461 (7.350-7.450); BG PO2 65.4 mmHg (75.0-100.0); BG SAMPLE SITE RIGHT RADIAL; BG TOTAL HEMOGLOBIN 8.2 g/dL (12.0-18.0); BG VENT MODE VENT - P/C
[2020-06-29] MEDS: MIDAZOLAM HCL 100 MG in SODIUM CHLORIDE 0.9% 100 ML IV PRN ×2 (08:08→23:37)
[2020-06-29] MEDS: DOCUSATE SODIUM SUGAR FREE 100MG/10ML UDC NG SCH ×2 (09:46→17:32)
[2020-06-29 09:55] LABS: PLATELET ESTIMATE NORMAL
[2020-06-29] MEDS: LACTULOSE 20G/30ML UDC PO SCH (20:11)
[2020-06-29] MEDS: DEXTROSE 5% WATER 1,000 ML IV SCH (20:12)
[2020-06-29] MEDS: ACETAMINOPHEN 650MG/20.3ML UDC GT PRN (20:44)
[2020-06-30] VITALS (98 sets, daily range): BP systolic 71–140; BP diastolic 48–78
[2020-06-30] MEDS: IPRATROPIUM BROMIDE (0.02%) 0.5MG/2.5ML NEB HHN SCH ×4 (00:35→20:52)
[2020-06-30] MEDS: PHENYLEPHRINE 100 MG in DEXT 5% WATER 240 ML IV PRN ×2 (04:00→21:59)
[2020-06-30] MEDS: SUCRALFATE 1 G/10 ML UDC PO SCH ×4 (05:34→21:58)
[2020-06-30] MEDS: METHYLPREDNISOLONE SOD SUCC 40 MG/ML VIAL IV SCH ×3 (05:34→21:58)
[2020-06-30] MEDS: PANTOPRAZOLE SODIUM 40 MG/VIAL IV SCH ×2 (05:34→17:24)
[2020-06-30 05:50] LABS: HEMATOCRIT. 22.3 % (42.0-52.0); HEMOGLOBIN. 7.2 g/dL (14.0-18.0); MEAN CORPUSCULAR HEMOGLOBIN 29.9 pg (28.0-32.0); MEAN CORPUSCULAR VOLUME 92.7 fL (80.0-94.0); MEAN PLATELET VOLUME 8.8 fl (7.4-10.4); PLATELET 182 x1000/uL (130-400); RED BLOOD CELL COUNT 2.41 mill/uL (4.7-6.1); RED CELL DISTRIBUTION WIDTH 15.1 % (11.6-14.6)
[2020-06-30 06:10] LABS: CHLORIDE 103 mEq/L (98-107)
[2020-06-30 08:27] LABS: BG BASE EXCESS 3.5 mmol/L (-2.0-2.0); BG CARBOXYHEMOGLOBIN 1.4 % (0.5-1.5); BG DEOXYHEMOGLOBIN 3.8 % (0.0-5.0); BG FRACTION INSPIRED OXYGEN 90; BG HCO3 ACT 29.1 mmol/L (22.0-26.0); BG METHEMOGLOBIN 0.1 % (0.0-1.5); BG OXYGEN SATURATION 96.1 % (92.0-98.5); BG OXYHEMOGLOBIN 94.7 % (94.0-97.0); BG PCO2 50.1 mmHg (35.0-45.0); BG PH 7.382 (7.350-7.450); BG PO2 89.8 mmHg (75.0-100.0); BG SAMPLE SITE RIGHT RADIAL; BG VENT MODE VENT - P/C
[2020-06-30] MEDS: DOCUSATE SODIUM SUGAR FREE 100MG/10ML UDC NG SCH ×2 (08:55→16:20)
[2020-06-30 09:33] LABS: PLATELET ESTIMATE NORMAL
[2020-06-30] MEDS: FENTANYL CITRATE/PF 2,500 MCG in SODIUM CHLORIDE 0.9% 200 ML IV PRN (10:27)
[2020-06-30] MEDS ORDERED: CEFEPIME 1,000 MG in DEXTROSE 5% WATER 50 ML IV SCH (11:00)
[2020-06-30] MEDS: CEFEPIME 1,000 MG in DEXTROSE 5% WATER 50 ML IV SCH (12:52)
[2020-06-30] MEDS: MIDAZOLAM HCL 100 MG in SODIUM CHLORIDE 0.9% 100 ML IV PRN (17:46)
[2020-06-30] MEDS: LACTULOSE 20G/30ML UDC PO SCH (21:58)
[2020-07-01] VITALS (93 sets, daily range): BP systolic 81–133; BP diastolic 48–76
[2020-07-01] MEDS: FENTANYL CITRATE/PF 2,500 MCG in SODIUM CHLORIDE 0.9% 200 ML IV PRN ×2 (01:27→17:13)
[2020-07-01] MEDS: IPRATROPIUM BROMIDE (0.02%) 0.5MG/2.5ML NEB HHN SCH ×4 (03:05→20:46)
[2020-07-01 05:08] LABS: MEAN CORPUSCULAR HEMOGLOBIN 29.9 pg (28.0-32.0); MEAN CORPUSCULAR VOLUME 92.1 fL (80.0-94.0); MEAN PLATELET VOLUME 8.7 fl (7.4-10.4); PLATELET 162 x1000/uL (130-400); RED BLOOD CELL COUNT 2.13 mill/uL (4.7-6.1); RED CELL DISTRIBUTION WIDTH 15.2 % (11.6-14.6)
[2020-07-01 05:12] LABS: CHLORIDE 102 mEq/L (98-107)
[2020-07-01 05:26] LABS: HEMATOCRIT. 19.6 % (42.0-52.0); HEMOGLOBIN. 6.4 g/dL (14.0-18.0)
[2020-07-01] MEDS: PANTOPRAZOLE SODIUM 40 MG/VIAL IV SCH ×2 (06:12→17:06)
[2020-07-01] MEDS: METHYLPREDNISOLONE SOD SUCC 40 MG/ML VIAL IV SCH ×3 (06:12→21:12)
[2020-07-01] MEDS: SUCRALFATE 1 G/10 ML UDC PO SCH ×4 (06:12→21:12)
[2020-07-01] MEDS: DEXTROSE 5% WATER 1,000 ML IV SCH (06:13)
[2020-07-01 08:15] LABS: PLATELET ESTIMATE NORMAL
[2020-07-01 08:52] LABS: BG BASE EXCESS 5.4 mmol/L (-2.0-2.0); BG FRACTION INSPIRED OXYGEN 90; BG HCO3 ACT 29.4 mmol/L (22.0-26.0); BG METHEMOGLOBIN 0.3 % (0.0-1.5); BG OXYGEN SATURATION 96.9 % (92.0-98.5); BG OXYHEMOGLOBIN 94.7 % (94.0-97.0); BG PCO2 41.1 mmHg (35.0-45.0); BG PH 7.473 (7.350-7.450); BG PO2 89.1 mmHg (75.0-100.0); BG SAMPLE SITE RIGHT RADIAL; BG TOTAL HEMOGLOBIN 6.8 g/dL (12.0-18.0); BG VENT MODE VENT - P/C
[2020-07-01] MEDS: DOCUSATE SODIUM SUGAR FREE 100MG/10ML UDC NG SCH ×2 (08:53→17:06)
[2020-07-01] MEDS: METOCLOPRAMIDE HCL 10MG/2ML VIAL IV SCH ×3 (11:31→23:03)
[2020-07-01 12:58] LABS: INR 1.2; PROTHROMBIN TIME 12.5 sec (9.6-11.0)
[2020-07-01] MEDS: CEFEPIME 1,000 MG in DEXTROSE 5% WATER 50 ML IV SCH (13:18)
[2020-07-01] MEDS ORDERED: SORBITOL 70% SOLN 30ML NG NR (13:30)
[2020-07-01] MEDS: LACTULOSE 20G/30ML UDC PO SCH (21:12)
[2020-07-01] MEDS: SENNOSIDES/DOCUSATE SOD 8.6/50MG TABLET NG SCH (21:12)
[2020-07-01] MEDS: MIDAZOLAM HCL 100 MG in SODIUM CHLORIDE 0.9% 100 ML IV PRN (21:23)
[2020-07-01] MEDS: PHENYLEPHRINE 100 MG in DEXT 5% WATER 240 ML IV PRN (21:40)
[2020-07-02] VITALS (96 sets, daily range): BP systolic 80–144; BP diastolic 45–78
[2020-07-02] MEDS: IPRATROPIUM BROMIDE (0.02%) 0.5MG/2.5ML NEB HHN SCH ×4 (02:23→19:58)
[2020-07-02] MEDS: FENTANYL CITRATE/PF 2,500 MCG in SODIUM CHLORIDE 0.9% 200 ML IV PRN ×3 (03:33→22:34)
[2020-07-02] MEDS: METHYLPREDNISOLONE SOD SUCC 40 MG/ML VIAL IV SCH ×3 (05:35→21:15)
[2020-07-02] MEDS: METOCLOPRAMIDE HCL 10MG/2ML VIAL IV SCH ×4 (05:35→23:31)
[2020-07-02] MEDS: PANTOPRAZOLE SODIUM 40 MG/VIAL IV SCH ×2 (05:35→17:01)
[2020-07-02] MEDS: SUCRALFATE 1 G/10 ML UDC PO SCH ×4 (05:35→21:15)
[2020-07-02 05:37] LABS: HEMATOCRIT. 21.7 % (42.0-52.0); HEMOGLOBIN. 7.5 g/dL (14.0-18.0); MEAN CORPUSCULAR HEMOGLOBIN 30.6 pg (28.0-32.0); MEAN CORPUSCULAR VOLUME 89.2 fL (80.0-94.0); MEAN PLATELET VOLUME 8.6 fl (7.4-10.4); PLATELET 140 x1000/uL (130-400); RED BLOOD CELL COUNT 2.44 mill/uL (4.7-6.1); RED CELL DISTRIBUTION WIDTH 14.4 % (11.6-14.6)
[2020-07-02 05:41] LABS: CHLORIDE 104 mEq/L (98-107)
[2020-07-02] MEDS: PHENYLEPHRINE 100 MG in DEXT 5% WATER 240 ML IV PRN ×3 (07:27→21:57)
[2020-07-02] MEDS: NOREPINEPHRINE 8 MG in DEXTROSE 5% WATER 250 ML IV PRN (07:28)
[2020-07-02 07:33] LABS: PLATELET ESTIMATE NORMAL
[2020-07-02] MEDS: DOCUSATE SODIUM SUGAR FREE 100MG/10ML UDC NG SCH ×2 (08:10→17:01)
[2020-07-02 09:20] LABS: BG CARBOXYHEMOGLOBIN 0.8 % (0.5-1.5); BG DEOXYHEMOGLOBIN 11.4 % (0.0-5.0); BG FRACTION INSPIRED OXYGEN 80; BG HCO3 ACT 24.8 mmol/L (22.0-26.0); BG OXYGEN SATURATION 88.5 % (92.0-98.5); BG OXYHEMOGLOBIN 87.8 % (94.0-97.0); BG PCO2 40.9 mmHg (35.0-45.0); BG PH 7.401 (7.350-7.450); BG PO2 56.6 mmHg (75.0-100.0); BG SAMPLE SITE RIGHT RADIAL; BG TOTAL HEMOGLOBIN 7.9 g/dL (12.0-18.0); BG VENT MODE VENT - P/C
[2020-07-02] MEDS: MIDAZOLAM HCL 100 MG in SODIUM CHLORIDE 0.9% 100 ML IV PRN (11:24)
[2020-07-02] MEDS: DEXTROSE 5% WATER 1,000 ML IV SCH (11:34)
[2020-07-02] MEDS ORDERED: VANCOMYCIN 1500MG in DEXTROSE 5% WATER 250ML IV SCH (12:00)
[2020-07-02] MEDS ORDERED: ALBUMIN HUMAN 25GM/100ML (25%) IV SCH (12:00)
[2020-07-02] MEDS: METRONIDAZOLE 500 MG PREMIX 100 ML IV SCH ×2 (12:11→21:15)
[2020-07-02] MEDS: CEFEPIME 1,000 MG in DEXTROSE 5% WATER 50 ML IV SCH (12:11)
[2020-07-02] MEDS: LACTULOSE 20G/30ML UDC PO SCH (21:15)
[2020-07-02] MEDS: SENNOSIDES/DOCUSATE SOD 8.6/50MG TABLET NG SCH (21:15)
[2020-07-03] VITALS (95 sets, daily range): BP systolic 90–153; BP diastolic 52–90
[2020-07-03] MEDS: IPRATROPIUM BROMIDE (0.02%) 0.5MG/2.5ML NEB HHN SCH ×4 (01:51→20:25)
[2020-07-03] MEDS: MIDAZOLAM HCL 100 MG in SODIUM CHLORIDE 0.9% 100 ML IV PRN ×2 (04:16→16:28)
[2020-07-03 05:01] LABS: MEAN CORPUSCULAR HEMOGLOBIN 30.4 pg (28.0-32.0); MEAN CORPUSCULAR VOLUME 89.3 fL (80.0-94.0); MEAN PLATELET VOLUME 8.8 fl (7.4-10.4); PLATELET 122 x1000/uL (130-400)
[2020-07-03 05:07] LABS: CHLORIDE 100 mEq/L (98-107)
[2020-07-03 05:09] LABS: HEMATOCRIT. 18.7 % (42.0-52.0); HEMOGLOBIN. 6.4 g/dL (14.0-18.0)
[2020-07-03] MEDS: METRONIDAZOLE 500 MG PREMIX 100 ML IV SCH ×3 (05:48→20:58)
[2020-07-03] MEDS: METHYLPREDNISOLONE SOD SUCC 40 MG/ML VIAL IV SCH ×3 (05:48→20:58)
[2020-07-03] MEDS: METOCLOPRAMIDE HCL 10MG/2ML VIAL IV SCH ×4 (05:49→23:15)
[2020-07-03] MEDS: PANTOPRAZOLE SODIUM 40 MG/VIAL IV SCH ×2 (05:49→17:40)
[2020-07-03] MEDS: SUCRALFATE 1 G/10 ML UDC PO SCH ×4 (05:49→20:58)
[2020-07-03] MEDS: PHENYLEPHRINE 100 MG in DEXT 5% WATER 240 ML IV PRN ×2 (06:02→16:28)
[2020-07-03] MEDS: VANCOMYCIN 1 G PREMIX 200 ML IV SCH ×2 (06:48→23:15)
[2020-07-03] MEDS: FENTANYL CITRATE/PF 2,500 MCG in SODIUM CHLORIDE 0.9% 200 ML IV PRN ×2 (08:02→16:28)
[2020-07-03] MEDS: DOCUSATE SODIUM SUGAR FREE 100MG/10ML UDC NG SCH ×2 (08:07→17:40)
[2020-07-03 08:57] LABS: BG BASE EXCESS 1.2 mmol/L (-2.0-2.0); BG CARBOXYHEMOGLOBIN 1.7 % (0.5-1.5); BG DEOXYHEMOGLOBIN 1.7 % (0.0-5.0); BG FRACTION INSPIRED OXYGEN 80; BG HCO3 ACT 26.5 mmol/L (22.0-26.0); BG METHEMOGLOBIN 0.5 % (0.0-1.5); BG OXYGEN SATURATION 98.3 % (92.0-98.5); BG OXYHEMOGLOBIN 96.1 % (94.0-97.0); BG PCO2 45.8 mmHg (35.0-45.0); BG PO2 126.7 mmHg (75.0-100.0); BG SAMPLE SITE RIGHT RADIAL; BG TOTAL HEMOGLOBIN 6.7 g/dL (12.0-18.0); BG VENT MODE VENT - P/C
[2020-07-03 11:45] LABS: HEMATOCRIT 19.7 % (42.0-52.0); HEMOGLOBIN 6.5 g/dL (14.0-18.0)
[2020-07-03 12:27] LABS: NUCLEATED RED BLOOD CELLS 1 /100 WBC; PLATELET ESTIMATE SLIGHTLY DECREASED
[2020-07-03] MEDS: CEFEPIME 1,000 MG in DEXTROSE 5% WATER 50 ML IV SCH (13:29)
[2020-07-03] MEDS: DEXTROSE 5% WATER 1,000 ML IV SCH ×2 (15:16→20:12)
[2020-07-03] MEDS: LACTULOSE 20G/30ML UDC PO SCH (20:58)
[2020-07-03] MEDS: SENNOSIDES/DOCUSATE SOD 8.6/50MG TABLET NG SCH (20:58)
[2020-07-03 23:24] LABS: INR 1.4; PROTHROMBIN TIME 14.2 sec (9.6-11.0)
[2020-07-03 23:59] LABS: HEMATOCRIT 27.1 % (42.0-52.0); HEMOGLOBIN 9.1 g/dL (14.0-18.0)
[2020-07-04] VITALS (94 sets, daily range): BP systolic 74–133; BP diastolic 40–77
[2020-07-04] MEDS: IPRATROPIUM BROMIDE (0.02%) 0.5MG/2.5ML NEB HHN SCH ×4 (01:45→20:33)
[2020-07-04] MEDS: FENTANYL CITRATE/PF 2,500 MCG in SODIUM CHLORIDE 0.9% 200 ML IV PRN ×3 (03:20→23:13)
[2020-07-04 04:29] LABS: HEMATOCRIT. 26.3 % (42.0-52.0); HEMOGLOBIN. 8.6 g/dL (14.0-18.0); MEAN CORPUSCULAR HEMOGLOBIN 29.8 pg (28.0-32.0); MEAN CORPUSCULAR VOLUME 90.8 fL (80.0-94.0); MEAN PLATELET VOLUME 8.5 fl (7.4-10.4); PLATELET 124 x1000/uL (130-400); RED CELL DISTRIBUTION WIDTH 15.4 % (11.6-14.6)
[2020-07-04 04:35] LABS: CHLORIDE 102 mEq/L (98-107)
[2020-07-04] MEDS: METOCLOPRAMIDE HCL 10MG/2ML VIAL IV SCH ×4 (05:02→23:12)
[2020-07-04] MEDS: METHYLPREDNISOLONE SOD SUCC 40 MG/ML VIAL IV SCH (05:03)
[2020-07-04] MEDS: SUCRALFATE 1 G/10 ML UDC PO SCH ×4 (05:03→20:28)
[2020-07-04] MEDS: METRONIDAZOLE 500 MG PREMIX 100 ML IV SCH ×3 (05:03→20:28)
[2020-07-04] MEDS: PANTOPRAZOLE SODIUM 40 MG/VIAL IV SCH ×2 (05:05→17:49)
[2020-07-04] MEDS: PHENYLEPHRINE 100 MG in DEXT 5% WATER 240 ML IV PRN ×2 (05:18→17:51)
[2020-07-04] MEDS: MIDAZOLAM HCL 100 MG in SODIUM CHLORIDE 0.9% 100 ML IV PRN ×2 (07:27→23:14)
[2020-07-04 08:25] LABS: NUCLEATED RED BLOOD CELLS 1 /100 WBC; PLATELET ESTIMATE SLIGHTLY DECREASED
[2020-07-04 08:44] LABS: BG BASE EXCESS -1.1 mmol/L (-2.0-2.0); BG CARBOXYHEMOGLOBIN 0.5 % (0.5-1.5); BG DEOXYHEMOGLOBIN 1.5 % (0.0-5.0); BG HCO3 ACT 27.5 mmol/L (22.0-26.0); BG METHEMOGLOBIN 0.1 % (0.0-1.5); BG OXYGEN SATURATION 98.5 % (92.0-98.5); BG OXYHEMOGLOBIN 97.9 % (94.0-97.0); BG PCO2 69.5 mmHg (35.0-45.0); BG PH 7.215 (7.350-7.450); BG PO2 153.8 mmHg (75.0-100.0); BG SAMPLE SITE RIGHT RADIAL; BG TOTAL HEMOGLOBIN 9.7 g/dL (12.0-18.0); BG VENT MODE VENT - P/C
[2020-07-04] MEDS: DOCUSATE SODIUM SUGAR FREE 100MG/10ML UDC NG SCH ×2 (09:00→17:00)
[2020-07-04] MEDS: CEFEPIME 1,000 MG in DEXTROSE 5% WATER 50 ML IV SCH (13:19)
[2020-07-04] MEDS: VANCOMYCIN 1 G PREMIX 200 ML IV SCH (17:52)
[2020-07-04] MEDS: LACTULOSE 20G/30ML UDC PO SCH (20:28)
[2020-07-04] MEDS: SENNOSIDES/DOCUSATE SOD 8.6/50MG TABLET NG SCH (20:28)
[2020-07-04] MEDS: DEXTROSE 5% WATER 1,000 ML IV SCH (20:29)
[2020-07-05] VITALS (97 sets, daily range): BP systolic 86–132; BP diastolic 46–76
[2020-07-05] MEDS: IPRATROPIUM BROMIDE (0.02%) 0.5MG/2.5ML NEB HHN SCH ×3 (01:51→19:40)
[2020-07-05 05:09] LABS: HEMATOCRIT. 25.6 % (42.0-52.0); HEMOGLOBIN. 8.5 g/dL (14.0-18.0); MEAN CORPUSCULAR HEMOGLOBIN 29.8 pg (28.0-32.0); MEAN CORPUSCULAR VOLUME 89.8 fL (80.0-94.0); MEAN PLATELET VOLUME 8.3 fl (7.4-10.4); PLATELET 108 x1000/uL (130-400); RED BLOOD CELL COUNT 2.85 mill/uL (4.7-6.1); RED CELL DISTRIBUTION WIDTH 15.1 % (11.6-14.6)
[2020-07-05] MEDS: PHENYLEPHRINE 100 MG in DEXT 5% WATER 240 ML IV PRN ×2 (07:26→20:50)
[2020-07-05] MEDS: FENTANYL CITRATE/PF 2,500 MCG in SODIUM CHLORIDE 0.9% 200 ML IV PRN ×2 (07:28→16:04)
[2020-07-05] MEDS: SUCRALFATE 1 G/10 ML UDC PO SCH ×4 (07:47→20:14)
[2020-07-05] MEDS: METRONIDAZOLE 500 MG PREMIX 100 ML IV SCH ×3 (07:47→21:17)
[2020-07-05] MEDS: METOCLOPRAMIDE HCL 10MG/2ML VIAL IV SCH ×4 (07:47→23:28)
[2020-07-05] MEDS: PANTOPRAZOLE SODIUM 40 MG/VIAL IV SCH ×2 (07:49→17:21)
[2020-07-05] MEDS: DOCUSATE SODIUM SUGAR FREE 100MG/10ML UDC NG SCH ×3 (08:35→16:09)
[2020-07-05] MEDS: MIDAZOLAM HCL 100 MG in SODIUM CHLORIDE 0.9% 100 ML IV PRN ×2 (08:35→22:11)
[2020-07-05 08:56] LABS: BG BASE EXCESS 3.2 mmol/L (-2.0-2.0); BG CARBOXYHEMOGLOBIN 0.4 % (0.5-1.5); BG DEOXYHEMOGLOBIN 7.7 % (0.0-5.0); BG FRACTION INSPIRED OXYGEN 80; BG HCO3 ACT 27.5 mmol/L (22.0-26.0); BG METHEMOGLOBIN 0.2 % (0.0-1.5); BG OXYGEN SATURATION 92.3 % (92.0-98.5); BG OXYHEMOGLOBIN 91.7 % (94.0-97.0); BG PCO2 40.7 mmHg (35.0-45.0); BG PH 7.448 (7.350-7.450); BG PO2 58.8 mmHg (75.0-100.0); BG SAMPLE SITE RIGHT RADIAL; BG TOTAL HEMOGLOBIN 8.5 g/dL (12.0-18.0); BG VENT MODE VENT - P/C
[2020-07-05 08:57] LABS: CHLORIDE 105 mEq/L (98-107)
[2020-07-05] MEDS ORDERED: NA PHOS,M-B/NA PHOS,DI-BA ENEMA 118ML PR NR (10:45)
[2020-07-05 10:53] LABS: HEMATOCRIT 24.3 % (42.0-52.0); MEAN CORPUSCULAR HEMOGLOBIN 29.9 pg (28.0-32.0); MEAN CORPUSCULAR VOLUME 90.5 fL (80.0-94.0); PLATELET 103 x1000/uL (130-400); RED BLOOD CELL COUNT 2.69 mill/uL (4.7-6.1); RED CELL DISTRIBUTION WIDTH 15.3 % (11.6-14.6)
[2020-07-05] MEDS: VANCOMYCIN 1 G PREMIX 200 ML IV SCH (12:11)
[2020-07-05 12:29] LABS: PLATELET ESTIMATE SLIGHTLY DECREASED
[2020-07-05] MEDS ORDERED: MAGNESIUM 2 G PREMIX 50 ML IV NR (14:30)
[2020-07-05] MEDS ORDERED: POTASSIUM CHLORIDE INJ 40 MEQ in DEXT 5% WATER 250 ML IV NR (14:30)
[2020-07-05] MEDS: CEFEPIME 1,000 MG in DEXTROSE 5% WATER 50 ML IV SCH (15:08)
[2020-07-05] MEDS: SENNOSIDES/DOCUSATE SOD 8.6/50MG TABLET NG SCH (20:14)
[2020-07-05] MEDS: LACTULOSE 20G/30ML UDC PO SCH (20:14)
[2020-07-06] VITALS (94 sets, daily range): BP systolic 63–117; BP diastolic 29–69
[2020-07-06] MEDS: FENTANYL CITRATE/PF 2,500 MCG in SODIUM CHLORIDE 0.9% 200 ML IV PRN ×2 (01:36→15:43)
[2020-07-06] MEDS: IPRATROPIUM BROMIDE (0.02%) 0.5MG/2.5ML NEB HHN SCH ×4 (01:38→20:14)
[2020-07-06 05:02] LABS: HEMATOCRIT. 22.8 % (42.0-52.0); HEMOGLOBIN. 7.5 g/dL (14.0-18.0); MEAN CORPUSCULAR HEMOGLOBIN 29.9 pg (28.0-32.0); MEAN CORPUSCULAR VOLUME 90.8 fL (80.0-94.0); MEAN PLATELET VOLUME 9.2 fl (7.4-10.4); PLATELET 104 x1000/uL (130-400); RED BLOOD CELL COUNT 2.51 mill/uL (4.7-6.1); RED CELL DISTRIBUTION WIDTH 15.1 % (11.6-14.6)
[2020-07-06] MEDS: METOCLOPRAMIDE HCL 10MG/2ML VIAL IV SCH ×4 (05:04→23:35)
[2020-07-06] MEDS: PANTOPRAZOLE SODIUM 40 MG/VIAL IV SCH ×2 (05:04→18:07)
[2020-07-06] MEDS: VANCOMYCIN 1 G PREMIX 200 ML IV SCH ×2 (05:04→23:35)
[2020-07-06] MEDS: METRONIDAZOLE 500 MG PREMIX 100 ML IV SCH ×4 (06:41→21:03)
[2020-07-06] MEDS: SUCRALFATE 1 G/10 ML UDC PO SCH ×4 (06:41→21:03)
[2020-07-06] MEDS: DOCUSATE SODIUM SUGAR FREE 100MG/10ML UDC NG SCH (08:47)
[2020-07-06] MEDS: PHENYLEPHRINE 100 MG in DEXT 5% WATER 240 ML IV PRN ×2 (08:48→15:43)
[2020-07-06] MEDS: DEXTROSE 5% WATER 1,000 ML IV SCH (08:49)
[2020-07-06 10:02] LABS: BG BASE EXCESS 1.2 mmol/L (-2.0-2.0); BG CARBOXYHEMOGLOBIN 0.6 % (0.5-1.5); BG FRACTION INSPIRED OXYGEN 28; BG HCO3 ACT 26.5 mmol/L (22.0-26.0); BG METHEMOGLOBIN 0.5 % (0.0-1.5); BG OXYHEMOGLOBIN 96.9 % (94.0-97.0); BG PCO2 45.7 mmHg (35.0-45.0); BG PH 7.381 (7.350-7.450); BG PO2 137.4 mmHg (75.0-100.0); BG SAMPLE SITE RIGHT RADIAL; BG TOTAL HEMOGLOBIN 7.3 g/dL (12.0-18.0); BG VENT MODE VENT - P/C
[2020-07-06 11:21] LABS: PLATELET ESTIMATE SLIGHTLY DECREASED
[2020-07-06] MEDS: MIDAZOLAM HCL 100 MG in SODIUM CHLORIDE 0.9% 100 ML IV PRN (15:42)
[2020-07-06] MEDS: CEFEPIME 1,000 MG in DEXTROSE 5% WATER 50 ML IV SCH (18:07)
[2020-07-06] MEDS ORDERED: POTASSIUM CHLORIDE INJ 40 MEQ in DEXT 5% WATER 250 ML IV ONE (18:30)
[2020-07-06] MEDS: SENNOSIDES/DOCUSATE SOD 8.6/50MG TABLET NG SCH (21:03)
[2020-07-06] MEDS: LACTULOSE 20G/30ML UDC PO SCH (21:03)
[2020-07-07] VITALS (103 sets, daily range): BP systolic 67–143; BP diastolic 40–76
[2020-07-07] MEDS: FENTANYL CITRATE/PF 2,500 MCG in SODIUM CHLORIDE 0.9% 200 ML IV PRN ×3 (00:05→22:57)
[2020-07-07] MEDS: PHENYLEPHRINE 100 MG in DEXT 5% WATER 240 ML IV PRN ×3 (00:19→17:49)
[2020-07-07] MEDS: IPRATROPIUM BROMIDE (0.02%) 0.5MG/2.5ML NEB HHN SCH ×4 (00:21→20:39)
[2020-07-07] MEDS: NOREPINEPHRINE 8 MG in DEXTROSE 5% WATER 250 ML IV PRN ×3 (03:18→15:04)
[2020-07-07] MEDS: DEXTROSE 5% WATER 1,000 ML IV SCH ×2 (03:39→21:03)
[2020-07-07] MEDS: MIDAZOLAM HCL 100 MG in SODIUM CHLORIDE 0.9% 100 ML IV PRN ×2 (04:00→15:04)
[2020-07-07] MEDS: PANTOPRAZOLE SODIUM 40 MG/VIAL IV SCH ×2 (05:34→17:48)
[2020-07-07] MEDS: METRONIDAZOLE 500 MG PREMIX 100 ML IV SCH ×3 (05:34→21:03)
[2020-07-07] MEDS: SUCRALFATE 1 G/10 ML UDC PO SCH ×4 (05:34→21:03)
[2020-07-07] MEDS: METOCLOPRAMIDE HCL 10MG/2ML VIAL IV SCH ×3 (05:35→17:48)
[2020-07-07 05:51] LABS: HEMOGLOBIN. 7.8 g/dL (14.0-18.0); MEAN CORPUSCULAR HEMOGLOBIN 29.1 pg (28.0-32.0); MEAN CORPUSCULAR VOLUME 89.9 fL (80.0-94.0); PLATELET 105 x1000/uL (130-400); RED BLOOD CELL COUNT 2.67 mill/uL (4.7-6.1); RED CELL DISTRIBUTION WIDTH 15.7 % (11.6-14.6)
[2020-07-07 08:10] LABS: PLATELET ESTIMATE SLIGHTLY DECREASED
[2020-07-07 09:31] LABS: CHLORIDE 100 mEq/L (98-107)
[2020-07-07 09:37] LABS: BG BASE EXCESS -1.8 mmol/L (-2.0-2.0); BG CARBOXYHEMOGLOBIN 0.9 % (0.5-1.5); BG DEOXYHEMOGLOBIN 5.6 % (0.0-5.0); BG FRACTION INSPIRED OXYGEN 75; BG HCO3 ACT 23.3 mmol/L (22.0-26.0); BG METHEMOGLOBIN 0.3 % (0.0-1.5); BG OXYGEN SATURATION 94.3 % (92.0-98.5); BG OXYHEMOGLOBIN 93.2 % (94.0-97.0); BG PCO2 41.1 mmHg (35.0-45.0); BG PH 7.371 (7.350-7.450); BG PO2 76.6 mmHg (75.0-100.0); BG SAMPLE SITE RIGHT RADIAL; BG VENT MODE VENT - P/C
[2020-07-07] MEDS ORDERED: SORBITOL 70% SOLN 30ML NG NR (11:30)
[2020-07-07] MEDS: CEFEPIME 1,000 MG in DEXTROSE 5% WATER 50 ML IV SCH (17:48)
[2020-07-07] MEDS: VANCOMYCIN 1 G PREMIX 200 ML IV SCH (18:32)
[2020-07-07] MEDS: LACTULOSE 20G/30ML UDC PO SCH (21:03)
[2020-07-07] MEDS: SENNOSIDES/DOCUSATE SOD 8.6/50MG TABLET NG SCH (21:27)
[2020-07-08] VITALS (102 sets, daily range): BP systolic 61–140; BP diastolic 27–84
[2020-07-08] MEDS: METOCLOPRAMIDE HCL 10MG/2ML VIAL IV SCH ×5 (00:36→23:41)
[2020-07-08] MEDS: PHENYLEPHRINE 100 MG in DEXT 5% WATER 240 ML IV PRN ×4 (01:51→23:32)
[2020-07-08] MEDS: NOREPINEPHRINE 8 MG in DEXTROSE 5% WATER 250 ML IV PRN ×3 (01:52→15:05)
[2020-07-08] MEDS: IPRATROPIUM BROMIDE (0.02%) 0.5MG/2.5ML NEB HHN SCH ×4 (02:53→20:17)
[2020-07-08] MEDS: SUCRALFATE 1 G/10 ML UDC PO SCH ×4 (05:49→20:59)
[2020-07-08] MEDS: PANTOPRAZOLE SODIUM 40 MG/VIAL IV SCH ×2 (05:49→16:36)
[2020-07-08 06:08] LABS: CHLORIDE 99 mEq/L (98-107)
[2020-07-08 06:13] LABS: HEMOGLOBIN. 7.3 g/dL (14.0-18.0); MEAN CORPUSCULAR HEMOGLOBIN 29.3 pg (28.0-32.0); MEAN PLATELET VOLUME 9.7 fl (7.4-10.4); PLATELET 101 x1000/uL (130-400)
[2020-07-08 08:00] LABS: BG BASE EXCESS -5.1 mmol/L (-2.0-2.0); BG CARBOXYHEMOGLOBIN 1.3 % (0.5-1.5); BG DEOXYHEMOGLOBIN 0.8 % (0.0-5.0); BG FRACTION INSPIRED OXYGEN 80; BG HCO3 ACT 21.5 mmol/L (22.0-26.0); BG METHEMOGLOBIN 0.3 % (0.0-1.5); BG OXYGEN SATURATION 99.2 % (92.0-98.5); BG OXYHEMOGLOBIN 97.6 % (94.0-97.0); BG PH 7.269 (7.350-7.450); BG PO2 217.5 mmHg (75.0-100.0); BG SAMPLE SITE RIGHT RADIAL; BG TOTAL HEMOGLOBIN 7.3 g/dL (12.0-18.0); BG TOTAL RESPIRATORY RATE 22 b/min; BG VENT MODE VENT - P/C
[2020-07-08] MEDS: MIDAZOLAM HCL 100 MG in SODIUM CHLORIDE 0.9% 100 ML IV PRN (09:06)
[2020-07-08] MEDS: FENTANYL CITRATE/PF 2,500 MCG in SODIUM CHLORIDE 0.9% 200 ML IV PRN ×2 (09:06→19:55)
[2020-07-08] MEDS ORDERED: POTASSIUM CHLORIDE INJ 40 MEQ in DEXT 5% WATER 250 ML IV ONE (11:00)
[2020-07-08 16:34] LABS: PLATELET ESTIMATE DECREASED
[2020-07-08] MEDS: CEFEPIME 1,000 MG in DEXTROSE 5% WATER 50 ML IV SCH (16:37)
[2020-07-08] MEDS: NOREPINEPHRINE 32 MG in DEXT 5% WATER 218 ML IV PRN ×2 (18:12→19:24)
[2020-07-08] MEDS: SENNOSIDES/DOCUSATE SOD 8.6/50MG TABLET NG SCH (20:59)
[2020-07-08] MEDS: LACTULOSE 20G/30ML UDC PO SCH (20:59)
[2020-07-09] VITALS (85 sets, daily range): BP systolic 63–127; BP diastolic 40–84
[2020-07-09] MEDS: IPRATROPIUM BROMIDE (0.02%) 0.5MG/2.5ML NEB HHN SCH ×4 (01:15→20:33)
[2020-07-09] MEDS: MIDAZOLAM HCL 100 MG in SODIUM CHLORIDE 0.9% 100 ML IV PRN ×2 (03:22→22:31)
[2020-07-09] MEDS: NOREPINEPHRINE 32 MG in DEXT 5% WATER 218 ML IV PRN ×2 (03:57→18:12)
[2020-07-09] MEDS: PANTOPRAZOLE SODIUM 40 MG/VIAL IV SCH ×2 (05:06→17:51)
[2020-07-09] MEDS: SUCRALFATE 1 G/10 ML UDC PO SCH ×4 (05:06→21:49)
[2020-07-09] MEDS: METOCLOPRAMIDE HCL 10MG/2ML VIAL IV SCH ×4 (05:07→23:56)
[2020-07-09] MEDS: FENTANYL CITRATE/PF 2,500 MCG in SODIUM CHLORIDE 0.9% 200 ML IV PRN ×2 (05:39→16:22)
[2020-07-09] MEDS: PHENYLEPHRINE 100 MG in DEXT 5% WATER 240 ML IV PRN ×4 (06:39→23:14)
[2020-07-09] MEDS: VASOPRESSIN 20 UNIT in SODIUM CHLORIDE 0.9% 99 ML IV PRN ×3 (08:47→23:55)
[2020-07-09] MEDS: DEXTROSE 5% WATER 1,000 ML IV SCH (08:51)
[2020-07-09 09:38] LABS: BG BASE EXCESS -6.1 mmol/L (-2.0-2.0); BG CARBOXYHEMOGLOBIN 1.4 % (0.5-1.5); BG FRACTION INSPIRED OXYGEN 60; BG HCO3 ACT 20.2 mmol/L (22.0-26.0); BG METHEMOGLOBIN 0.3 % (0.0-1.5); BG OXYGEN SATURATION 95.9 % (92.0-98.5); BG OXYHEMOGLOBIN 94.3 % (94.0-97.0); BG PCO2 43.4 mmHg (35.0-45.0); BG PH 7.285 (7.350-7.450); BG PO2 81.7 mmHg (75.0-100.0); BG SAMPLE SITE RIGHT RADIAL; BG TOTAL HEMOGLOBIN 7.9 g/dL (12.0-18.0); BG VENT MODE VENT - P/C
[2020-07-09] MEDS ORDERED: KCL 20MEQ/100ML PREMIX 100 ML IV SCH (10:30)
[2020-07-09] MEDS ORDERED: SODIUM BICARBONATE 8.4% 1 MEQ/ML 50ML SYR IV SCH (11:45)
[2020-07-09] MEDS ORDERED: ALBUMIN HUMAN 12.5GM/50ML (25%) IV SCH (12:00)
[2020-07-09] MEDS: SENNOSIDES/DOCUSATE SOD 8.6/50MG TABLET NG SCH ×2 (21:36→21:49)
[2020-07-09] MEDS: LACTULOSE 20G/30ML UDC PO SCH ×2 (21:36→21:49)
[2020-07-10] VITALS (104 sets, daily range): BP systolic 52–119; BP diastolic 30–71
[2020-07-10] MEDS: IPRATROPIUM BROMIDE (0.02%) 0.5MG/2.5ML NEB HHN SCH ×4 (01:45→20:48)
[2020-07-10] MEDS: FENTANYL CITRATE/PF 2,500 MCG in SODIUM CHLORIDE 0.9% 200 ML IV PRN (05:04)
[2020-07-10 05:12] LABS: MEAN CORPUSCULAR HEMOGLOBIN 30.1 pg (28.0-32.0); MEAN CORPUSCULAR VOLUME 90.6 fL (80.0-94.0); MEAN PLATELET VOLUME 9.4 fl (7.4-10.4); PLATELET 82 x1000/uL (130-400); RED BLOOD CELL COUNT 2.11 mill/uL (4.7-6.1); RED CELL DISTRIBUTION WIDTH 15.4 % (11.6-14.6)
[2020-07-10 05:15] LABS: CHLORIDE 92 mEq/L (98-107)
[2020-07-10 05:17] LABS: HEMATOCRIT. 19.1 % (42.0-52.0); HEMOGLOBIN. 6.4 g/dL (14.0-18.0)
[2020-07-10] MEDS: SUCRALFATE 1 G/10 ML UDC PO SCH ×4 (05:54→20:58)
[2020-07-10] MEDS: METOCLOPRAMIDE HCL 10MG/2ML VIAL IV SCH ×3 (05:54→19:04)
[2020-07-10] MEDS: PANTOPRAZOLE SODIUM 40 MG/VIAL IV SCH ×2 (05:54→19:03)
[2020-07-10] MEDS: PHENYLEPHRINE 100 MG in DEXT 5% WATER 240 ML IV PRN ×2 (06:43→19:47)
[2020-07-10 09:10] LABS: BG BASE EXCESS -6.7 mmol/L (-2.0-2.0); BG CARBOXYHEMOGLOBIN 1.3 % (0.5-1.5); BG DEOXYHEMOGLOBIN 2.3 % (0.0-5.0); BG FRACTION INSPIRED OXYGEN 60; BG HCO3 ACT 19.4 mmol/L (22.0-26.0); BG METHEMOGLOBIN 0.2 % (0.0-1.5); BG OXYGEN SATURATION 97.7 % (92.0-98.5); BG OXYHEMOGLOBIN 96.2 % (94.0-97.0); BG PCO2 41.7 mmHg (35.0-45.0); BG PH 7.285 (7.350-7.450); BG PO2 109.8 mmHg (75.0-100.0); BG SAMPLE SITE RIGHT RADIAL; BG TOTAL HEMOGLOBIN 6.2 g/dL (12.0-18.0); BG TOTAL RESPIRATORY RATE 26 b/min; BG VENT MODE VENT - P/C
[2020-07-10] MEDS: VASOPRESSIN 20 UNIT in SODIUM CHLORIDE 0.9% 99 ML IV PRN ×2 (09:40→23:20)
[2020-07-10] MEDS: DEXT 5%/0.9% NACL 1,000 ML IV SCH (09:43)
[2020-07-10 12:58] LABS: PLATELET ESTIMATE DECREASED
[2020-07-10] MEDS ORDERED: SODIUM BICARBONATE 8.4% 1 MEQ/ML 50ML SYR IV NR (13:00)
[2020-07-10] MEDS: NOREPINEPHRINE 32 MG in DEXT 5% WATER 218 ML IV PRN ×2 (15:24→20:59)
[2020-07-10 23:31] LABS: HEMATOCRIT. 22.6 % (42.0-52.0); HEMOGLOBIN. 7.6 g/dL (14.0-18.0); MEAN CORPUSCULAR HEMOGLOBIN 30.4 pg (28.0-32.0); MEAN CORPUSCULAR VOLUME 90.8 fL (80.0-94.0); MEAN PLATELET VOLUME 10.3 fl (7.4-10.4); PLATELET 76 x1000/uL (130-400); RED BLOOD CELL COUNT 2.49 mill/uL (4.7-6.1); RED CELL DISTRIBUTION WIDTH 14.3 % (11.6-14.6)
[2020-07-11] VITALS (99 sets, daily range): BP systolic 66–106; BP diastolic 41–64
[2020-07-11] MEDS: IPRATROPIUM BROMIDE (0.02%) 0.5MG/2.5ML NEB HHN SCH ×2 (00:24→08:07)
[2020-07-11] MEDS: METOCLOPRAMIDE HCL 10MG/2ML VIAL IV SCH ×4 (00:54→17:12)
[2020-07-11] MEDS: PHENYLEPHRINE 100 MG in DEXT 5% WATER 240 ML IV PRN ×4 (03:17→23:29)
[2020-07-11] MEDS: NOREPINEPHRINE 32 MG in DEXT 5% WATER 218 ML IV PRN ×4 (03:18→23:28)
[2020-07-11 05:00] LABS: HEMATOCRIT. 21.1 % (42.0-52.0); MEAN CORPUSCULAR HEMOGLOBIN 29.9 pg (28.0-32.0); MEAN CORPUSCULAR VOLUME 89.7 fL (80.0-94.0); MEAN PLATELET VOLUME 9.5 fl (7.4-10.4); PLATELET 70 x1000/uL (130-400); RED BLOOD CELL COUNT 2.35 mill/uL (4.7-6.1); RED CELL DISTRIBUTION WIDTH 14.2 % (11.6-14.6)
[2020-07-11 05:08] LABS: CHLORIDE 93 mEq/L (98-107)
[2020-07-11] MEDS: SUCRALFATE 1 G/10 ML UDC PO SCH ×4 (06:24→21:55)
[2020-07-11] MEDS: PANTOPRAZOLE SODIUM 40 MG/VIAL IV SCH ×2 (06:24→17:12)
[2020-07-11 07:13] LABS: PLATELET ESTIMATE DECREASED
[2020-07-11 08:12] LABS: PLATELET ESTIMATE DECREASED
[2020-07-11] MEDS: VASOPRESSIN 20 UNIT in SODIUM CHLORIDE 0.9% 99 ML IV PRN ×2 (09:03→17:14)
[2020-07-11] MEDS: DEXT 5%/0.9% NACL 1,000 ML IV SCH (19:20)
[2020-07-11] MEDS: SENNOSIDES/DOCUSATE SOD 8.6/50MG TABLET NG SCH (21:56)
[2020-07-11] MEDS: LACTULOSE 20G/30ML UDC PO SCH (21:56)
[2020-07-12] VITALS (85 sets, daily range): BP systolic 55–111; BP diastolic 34–77
[2020-07-12] MEDS: METOCLOPRAMIDE HCL 10MG/2ML VIAL IV SCH ×5 (00:19→23:44)
[2020-07-12] MEDS: VASOPRESSIN 20 UNIT in SODIUM CHLORIDE 0.9% 99 ML IV PRN ×3 (03:01→19:45)
[2020-07-12] MEDS: PANTOPRAZOLE SODIUM 40 MG/VIAL IV SCH ×2 (05:29→17:12)
[2020-07-12] MEDS: SUCRALFATE 1 G/10 ML UDC PO SCH ×4 (05:30→21:00)
[2020-07-12 05:45] LABS: MEAN CORPUSCULAR HEMOGLOBIN 29.3 pg (28.0-32.0); MEAN CORPUSCULAR VOLUME 99.4 fL (80.0-94.0); MEAN PLATELET VOLUME 11.1 fl (7.4-10.4); PLATELET 66 x1000/uL (130-400); RED BLOOD CELL COUNT 2.08 mill/uL (4.7-6.1); RED CELL DISTRIBUTION WIDTH 16.4 % (11.6-14.6)
[2020-07-12 05:49] LABS: CHLORIDE 88 mEq/L (98-107)
[2020-07-12] MEDS: NOREPINEPHRINE 32 MG in DEXT 5% WATER 218 ML IV PRN ×3 (06:23→19:19)
[2020-07-12 07:02] LABS: HEMATOCRIT. 20.7 % (42.0-52.0); HEMOGLOBIN. 6.1 g/dL (14.0-18.0)
[2020-07-12 08:04] LABS: BG BASE EXCESS -24.8 mmol/L (-2.0-2.0); BG CARBOXYHEMOGLOBIN 1.3 % (0.5-1.5); BG DEOXYHEMOGLOBIN 4.6 % (0.0-5.0); BG HCO3 ACT 5.3 mmol/L (22.0-26.0); BG METHEMOGLOBIN 0.4 % (0.0-1.5); BG OXYGEN SATURATION 95.3 % (92.0-98.5); BG OXYHEMOGLOBIN 93.7 % (94.0-97.0); BG PCO2 25.9 mmHg (35.0-45.0); BG PH 6.932 (7.350-7.450); BG PO2 101.3 mmHg (75.0-100.0); BG SAMPLE SITE LEFT RADIAL; BG TOTAL HEMOGLOBIN 5.8 g/dL (12.0-18.0); BG VENT MODE VENT - P/C
[2020-07-12] MEDS: PHENYLEPHRINE 100 MG in DEXT 5% WATER 240 ML IV PRN ×3 (08:26→23:39)
[2020-07-12] MEDS: DEXT 5%/0.9% NACL 1,000 ML IV SCH (11:01)
[2020-07-12 12:59] LABS: PLATELET ESTIMATE DECREASED
[2020-07-12] MEDS ORDERED: SODIUM BICARBONATE 8.4% 1 MEQ/ML 50ML SYR IV SCH (13:15)
[2020-07-12 13:32] LABS: HEMOGLOBIN 7.7 g/dL (14.0-18.0); MEAN CORPUSCULAR HEMOGLOBIN 29.5 pg (28.0-32.0); MEAN CORPUSCULAR VOLUME 95.6 fL (80.0-94.0); RED BLOOD CELL COUNT 2.61 mill/uL (4.7-6.1); RED CELL DISTRIBUTION WIDTH 15.9 % (11.6-14.6)
[2020-07-12 13:42] LABS: PROTHROMBIN TIME 64.4 sec (9.6-11.0)
[2020-07-12 17:15] LABS: BG BASE EXCESS -21.2 mmol/L (-2.0-2.0); BG CARBOXYHEMOGLOBIN 0.9 % (0.5-1.5); BG DEOXYHEMOGLOBIN 10.6 % (0.0-5.0); BG FRACTION INSPIRED OXYGEN 50; BG HCO3 ACT 7.4 mmol/L (22.0-26.0); BG METHEMOGLOBIN 0.3 % (0.0-1.5); BG OXYGEN SATURATION 89.3 % (92.0-98.5); BG OXYHEMOGLOBIN 88.2 % (94.0-97.0); BG PCO2 26.4 mmHg (35.0-45.0); BG PH 7.064 (7.350-7.450); BG SAMPLE SITE LEFT RADIAL; BG TOTAL HEMOGLOBIN 8.1 g/dL (12.0-18.0); BG VENT MODE VENT - AC
[2020-07-12] MEDS ORDERED: SODIUM BICARBONATE 8.4% 1 MEQ/ML 50ML SYR IV NR (18:30)
[2020-07-12] MEDS: LACTULOSE 20G/30ML UDC PO SCH (21:00)
[2020-07-12] MEDS: SENNOSIDES/DOCUSATE SOD 8.6/50MG TABLET NG SCH (21:00)
[2020-07-13] MEDS: NOREPINEPHRINE 32 MG in DEXT 5% WATER 218 ML IV PRN (01:31)
[2020-07-13 03:02] VITALS: BP 69/52
[2020-07-13] MEDS: PHENYLEPHRINE 100 MG in DEXT 5% WATER 240 ML IV PRN (05:08)
[2020-07-13] MEDS: VASOPRESSIN 20 UNIT in SODIUM CHLORIDE 0.9% 99 ML IV PRN (05:08)
[2020-07-13] MEDS: PANTOPRAZOLE SODIUM 40 MG/VIAL IV SCH (05:09)
[2020-07-13] MEDS: SUCRALFATE 1 G/10 ML UDC PO SCH ×2 (05:09→11:56)
[2020-07-13] MEDS: METOCLOPRAMIDE HCL 10MG/2ML VIAL IV SCH ×2 (05:09→11:56)
[2020-07-13] MEDS: DEXT 5%/0.9% NACL 1,000 ML IV SCH (06:20)
[2020-07-13 07:02] VITALS: BP 49/28
[2020-07-13 08:15] LABS: BG BASE EXCESS -24.3 mmol/L (-2.0-2.0); BG CARBOXYHEMOGLOBIN 0.9 % (0.5-1.5); BG DEOXYHEMOGLOBIN 0.6 % (0.0-5.0); BG HCO3 ACT 6.2 mmol/L (22.0-26.0); BG METHEMOGLOBIN 0.5 % (0.0-1.5); BG OXYGEN SATURATION 99.4 % (92.0-98.5); BG PCO2 30.4 mmHg (35.0-45.0); BG PH 6.924 (7.350-7.450); BG PO2 357.1 mmHg (75.0-100.0); BG SAMPLE SITE LEFT RADIAL; BG TOTAL HEMOGLOBIN 6.3 g/dL (12.0-18.0); BG VENT MODE VENT - P/C
[2020-07-13] MEDS ORDERED: SODIUM BICARBONATE 150 MEQ in DEXTROSE 5% WATER 1,000 ML IV SCH (10:00)
[2020-07-13 10:06] LABS: HEMATOCRIT. 23.5 % (42.0-52.0); MEAN CORPUSCULAR HEMOGLOBIN 30.1 pg (28.0-32.0); MEAN CORPUSCULAR VOLUME 106.4 fL (80.0-94.0); MEAN PLATELET VOLUME 9.8 fl (7.4-10.4); RED CELL DISTRIBUTION WIDTH 17.1 % (11.6-14.6)
[2020-07-13 10:27] LABS: HEMOGLOBIN. 6.6 g/dL (14.0-18.0); PLATELET 12 x1000/uL (130-400)
[2020-07-13 13:41] LABS: PLATELET 26 x1000/uL (130-400)
[2020-07-13 13:57] LABS: NUCLEATED RED BLOOD CELLS 5 /100 WBC; PLATELET ESTIMATE MARKEDLY DECREASED
== END 2020-07-13 13:35 | disposition expired | DRG 720 ==
LOC: ER 02:52 → EDUNIT# 02:52 → EDBEDREQ 05:04 → EDBEDREQTM 05:04 → MICUSO 06:12 → 7EST 11:27 → CVICU 06-06 18:00 → MICUSO 06-06 18:16
PROVIDERS: ADMIT Internal Medicine; ATTEND Internal Medicine
PROC: 5A1955Z Respiratory Ventilation, Greater than 96 Consecutive Hours (ICD-10-PCS; principal; 2020-06-06)
PROC: 5A12012 Performance of Cardiac Output, Single, Manual (ICD-10-PCS; 2020-06-06)
PROC: 0BH17EZ Insertion of Endotracheal Airway into Trachea, Via Natural or Artificial Opening (ICD-10-PCS; 2020-06-06)
PROC: 02HV33Z Insertion of Infusion Device into Superior Vena Cava, Percutaneous Approach (ICD-10-PCS; 2020-06-07)
PROC: 30233N1 Transfusion of Nonautologous Red Blood Cells into Peripheral Vein, Percutaneous Approach (ICD-10-PCS; 2020-06-20)
PROC: 0B9K3ZZ Drainage of Right Lung, Percutaneous Approach (ICD-10-PCS; 2020-07-12)
DX: A41.89 Other specified sepsis (principal); U07.1 COVID-19; J96.01 Acute respiratory failure with hypoxia; G92 Toxic encephalopathy; N17.0 Acute kidney failure with tubular necrosis; I21.A1 Myocardial infarction type 2; K72.00 Acute and subacute hepatic failure without coma; E43 Unspecified severe protein-calorie malnutrition; L89.152 Pressure ulcer of sacral region, stage 2; R65.21 Severe sepsis with septic shock; J12.82 Pneumonia due to coronavirus disease 2019; E83.51 Hypocalcemia; E87.5 Hyperkalemia; E87.0 Hyperosmolality and hypernatremia; D69.6 Thrombocytopenia, unspecified; Z78.1 Physical restraint status; K83.8 Other specified diseases of biliary tract; D62 Acute posthemorrhagic anemia; E87.1 Hypo-osmolality and hyponatremia; D63.8 Anemia in other chronic diseases classified elsewhere; E11.9 Type 2 diabetes mellitus without complications; E78.5 Hyperlipidemia, unspecified; I10 Essential (primary) hypertension; I45.10 Unspecified right bundle-branch block; E78.00 Pure hypercholesterolemia, unspecified; R74.01 Elevation of levels of liver transaminase levels; D72.810 Lymphocytopenia; I46.9 Cardiac arrest, cause unspecified; B37.49 Other urogenital candidiasis; D53.9 Nutritional anemia, unspecified; K74.60 Unspecified cirrhosis of liver; K56.41 Fecal impaction; I25.10 Atherosclerotic heart disease of native coronary artery without angina pectoris; K92.1 Melena; Z66 Do not resuscitate; K82.8 Other specified diseases of gallbladder; B96.5 Pseudomonas (aeruginosa) (mallei) (pseudomallei) as the cause of diseases classified elsewhere; E87.6 Hypokalemia; Z79.4 Long term (current) use of insulin; Z79.899 Other long term (current) drug therapy; Z68.35 Body mass index [BMI] 35.0-35.9, adult; Z87.01 Personal history of pneumonia (recurrent); I25.2 Old myocardial infarction; Z78.9 Other specified health status
CPT/HCPCS: 36415; 36600; 71045; 71275; 74018; 74176; 76770; 76937; 80048; 80053; 80061; 80076; 80202; 81003; 82040; 82043; 82140; 82248; 82270; 82375; 82550; 82553; 82570; 82607; 82728; 82746; 82805; 82962; 83036; 83540; 83550; 83605; 83615; 83735; 83880; 83935; 84100; 84132; 84133; 84134; 84145; 84300; 84439; 84443; 84484; 85014; 85018; 85025; 85027; 85049; 85379; 85384; 86140; 86850; 86900; 86920; 87070; 87077; 87106; 87186; 87426; 92950; 93005; 93970; 94002; 94003; 94640; 99291; A6261; C1725; C1893; C9113; J0456; J0692; J0696; J1100; J1450; J1650; J1815; J2060; J2250; J2370; J2405; J2765; J2920; J3010; J3370; J3475; J3480; J3490; J7030; J7040; J7042; J7050; J7060; J7070; P9016; P9021; P9047; Q9967; U0003; A4315